=== PATIENT | female | born 1935 | race Caucasian/White ===

== ENCOUNTER → 2021-03-19 10:43 | Outpatient (CLI) | payer MEDICARE, SELFPAY | PROVIDERS: Visit Provider Obstetrics & Gynecology | DX: N77.1 Vaginitis, vulvitis and vulvovaginitis in diseases classified elsewhere (principal) ==

== ENCOUNTER 2023-01-02 16:06 | Inpatient (IN) | payer MEDICARE, SELFPAY ==
[2023-01-02 15:17] VITALS: BP 99/49; PULSE 92; RESP 18; TEMP 36.7; O2SAT 90
[2023-01-02 15:19] VITALS: O2SAT 94
[2023-01-02 15:21] VITALS: BMI 29.4
[2023-01-02 15:27] VITALS: BP 104/88; PULSE 81; RESP 16; TEMP 36.7; O2SAT 95
--- NOTE | 2023-01-02 16:12 | HP.PCM.HOS_ITS ---
HPI - General General Date of Admission: 01/02/23 HPI Narrative BARBY CHOWDARY, is a 87 F who presents to an outside hospital with a couple weeks of ongoing fatigue as well as a cough. She takes lisinopril and metoprolol she says that she was recently taken off metoprolol because she was having some periodic heart palpitations but every now and again if she feels her heart acting up she will take her metoprolol. She presented to an outside hospital today and she was found to be afebrile but have a leukocytosis of 135,000 with platelets at 49,000 and hemoglobin of 11, automated differential showed that it was about 83% neutrophils as well as a possible pneumonia on chest x-ray. Her BNP was also elevated at 2000 but she had a creatinine of 3.3 and we do not know what her baseline is. She denies any chest pain, lightheadedness, or significant shortness of breath. [facility] Medical History (Updated 01/02/23 @ 17:[address] Shiva Lorenzo MD) History of removal of pessary Hypertension Prolapse of bladder Home Medications metoprolol succinate 50 mg capsule sprinkle, ext. release 24 hr (Kapspargo Sprinkle) 50 mg PO DAILY 01/02/23 [History Last Taken Unknown] Allergy/AdvReac Type Severity Reaction Status Date / Time pineapple AdvReac Mild Nausea Verified 01/02/23 15:27 tomato AdvReac Mild Itching Verified 01/02/23 15:27 bees AdvReac Severe Anaphylaxis Uncoded 01/02/23 15:27 Family History (Updated 01/02/23 @ 16:[address] Shiva Lorenzo MD) Other CVA (cerebral vascular accident) Family History no significant family his Surgical History no surgical history no surgical history Social History Smoking Status: Never smoker ROS Constitutional Constitutional: Reports fatigue; Denies chills, fever(s) or malaise Eyes Eyes: Denies blurry vision ENT HEENT: Denies headache(s) or nasal discharge Cardiovascular Cardiovascular: Denies chest pain, dyspnea on exertion or syncope Respiratory/Chest Respiratory/Chest: Reports cough; Denies shortness of breath at rest or shortness of breath with exertion Gastrointestinal Gastrointestinal: Denies constipation, diarrhea, nausea or vomiting Genitourinary Genitourinary: Denies dysuria Neurologic Neurologic: Denies focal weakness, numbness or tremor(s) Psychiatric Psychiatric: Denies anxiety or depression Vital Signs Vital Signs Vital Signs: 01/02/23 15:17 01/02/23 15:19 01/02/23 15:27 Temperature 98.1 F 98.1 F Temperature Source Oral Oral Pulse Rate 92 81 Respiratory Rate 18 16 Blood Pressure 99/49 L 104/88 H Blood Pressure Mean 65 93 Blood Pressure Source Monitor Monitor Blood Pressure Position Semi-Fowlers Semi-Fowlers Blood Pressure Location Left Arm Left Arm Pulse Ox 90 94 95 Oxygen Delivery Method Room Air Nasal Cannula Nasal Cannula Oxygen Flow Rate (L/min) 2 2 Weight Weight: 145 lb 11.609 oz Body Mass Index (BMI) 29.4 Physical Exam Narrative General: Alert, Oriented x3, Cooperative, No apparent distress HEENT: Atraumatic, PERRLA, EOMI, Normocephalic Oral: Moist Mucosa Neck: Supple, No JVD Lungs: Diminished, Normal air movement, No rhonchi, slight wheeze, No rales Cardiovascular: Regular rate, Regular Rhythm, Normal S1, Normal S2, No murmurs Abdomen: Soft, Non Tender, Non-Distended, No Hepato-splenomegaly Extremities: No edema, Capillary Refill Less than 3 Seconds Skin: No rashes, No breakdown Musculoskeletal: No Tenderness to Palpation of Joints or Extremities Neurological: Cranial nerves II-XII grossly intact, Motor Exam 5/5 strength throughout, Sensory exam intact to light touch and pain Psych/Mental Status: Normal Affect, Appropriate Assessment & Plan Assessment/Plan (1) Leukocytosis: PLAN: Plan 1. Leukocytosis unknown etiology with thrombocytopenia/elevated creatinine ? Her white blood cell count at the outside hospital is 135,000 we will recheck a CBC today and will also add an LDH as well as iron studies and a B12 ? We will place her on some IV fluids, is unclear as to what her baseline creatinine is she likely has an MIKKI boat we will see what her creatinine counteracts to tomorrow and if it is significantly lower than 3.3 she came in with then she likely does have an MIKKI ? Once further lab work comes back may need to proceed with consulting hematology ? Outside hospital imaging modalities are being uploaded into our PACS, at this time she is afebrile ? We will obtain a UA ? At the outside hospital she also had an elevated BNP which can be elevated to a degree with creatinine of 3.3 ? She was COVID-negative 2. Hypertension ? She has been on both metoprolol and lisinopril ? She states that she was stopped on the metoprolol but she takes it periodically whenever she feels that she has palpitations ? We will hold both her metoprolol and her lisinopril as she has her likely renal failure and her blood pressure is little bit borderline ? Continue with IV fluids DVT: SCDs 75 minutes was spent on direct patient care, including documentation as well as chart review and collaboration with colleagues Charges/Coding Visit Charges Inpatient E&M: 23185 Init Hosp L3
[2023-01-02] MEDS: 0.9% Normal Saline (1000mL) 1,000 ML 75 ML IV (16:28)
[2023-01-02 18:05] LABS: Hematocrit 31.1 % (37-47); Mean Corp Hgb Conc 32.2 g/dL (32-36); Mean Corpuscular Hgb 32.5 pg (27.0-32.0); Mean Platelet Vol. 12.6 fl (6.2-12.0); POSITIVE COUNT YES; POSITIVE DIFFERENTIAL YES; POSITIVE MORPHOLOGY YES; RBC Distribution Width CV 15.8 % (11.6-14.6); RBC Distribution Width SD 55.3 fl (35.1-43.9); Red Blood Count 3.08 M/mm3 (4.2-5.4)
[2023-01-02 18:19] LABS: Differential Indicated MANUAL DIFF; Platelet Count 40 K/mm3 (150-450); White Blood Count 148.1 K/mm3 (4.4-11.0)
[2023-01-02 18:36] LABS: Vitamin B12 1105 pg/mL (211-911)
[2023-01-02 18:45] LABS: Ferritin 528 ng/mL (8-252); Iron 133 ug/dL (50-170); Iron Binding Capacity,Total 236 ug/dL (250-450); LDH 695 U/L (84-246); PERCENT IRON SATURATION 56.4 % (15.0-55.0)
[2023-01-02 18:50] LABS: Neutrophil-Band 5 % (0-5); Total Cells Counted 100 (MANUAL DIFF)
[2023-01-02 18:51] LABS: Red Cell Morphology NORM C+C NORMAL (NORM C&C)
[2023-01-02 18:52] LABS: Platelet Estimate MKD DEC (ADEQ)
[2023-01-02 19:35] LABS: Mucous, Urine 0 SEEN /hpf (<or=2+)
[2023-01-02 19:41] LABS: Color, Urine Yellow (Yellow); Glucose, Dipstick Normal (Normal); Ketone-Dipstick Negative (Negative); Leukocyte Esterase-Dipstick 500 /ul (Negative); Nitrite-Dipstick Positive (Negative); Occult Blood-Urine 150 /ul (Negative); Protein-Dipstick 100 mg/dl (Negative); Specific Gravity, Urine 1.015 (1.002-1.030); Urine Bilirubin Dipstick Negative (Negative); Urine Clarity Cloudy (Clear); Urine Urobilinogen Normal (Normal)
[2023-01-02 19:48] LABS: Red Blood Cells-Urine 5-10 SEEN /hpf (0-5)
[2023-01-02 19:49] LABS: Bacteria 1+ /hpf (None Seen); Squamous Epithelial Cells - UA 0-5 SEEN /hpf (5-10); White Blood Cells 25-50 SEEN /hpf (0-5)
[2023-01-02 22:59] VITALS: BP 118/52; PULSE 74; RESP 18; TEMP 36.7; O2SAT 94
[2023-01-02 23:00] VITALS: BP 118/52; PULSE 74; RESP 18; TEMP 36.7; O2SAT 94
[2023-01-03] VITALS (8 sets, daily range): BP systolic 101–121; BP diastolic 50–82; PULSE 65–79; RESP 16–18; TEMP 36.4–36.7; O2SAT 90–100
[2023-01-03] MEDS: Zolpidem Tartrate 5 MG Tablet PO ×2 (00:06→20:37)
[2023-01-03] MEDS: Ceftriaxone 1 GM/50 ML BAG IV ×2 (00:09→20:37)
[2023-01-03] MEDS: guaiFENesin 1,200 MG Tablet 1200 MG PO ×3 (00:18→20:38)
[2023-01-03] MEDS: 0.9% Normal Saline (1000mL) 1,000 ML 75 ML IV (04:56)
--- NOTE | 2023-01-03 08:01 | PCM.PN.HOSP ---
Reason for Visit Reason for Visit: Diagnoses Elevated white blood cell count, unspecified (01/02/23) Subjective Subjective Patient is an 87-year-old lady with past medical history significant for hypertension, uterine prolapse who was sent from [facility] with renal failure and significant leukocytosis Objective Data Objective Data Vital Signs: Vital Signs Temp Pulse Resp BP Pulse Ox O2 Del Method O2 Flow Rate 98.0 F 69 18 112/50 L 93 Room Air 2 01/03/23 03:01 01/03/23 03:01 01/03/23 03:01 01/03/23 03:01 01/03/23 03:01 01/03/23 03:01 01/03/23 00:52 Oxygen Flow Rate (L/min) 2 Oxygen Delivery Method Room Air Weight: 66.1 kg Body Mass Index (BMI) 29.4 Intake & Output: Intake and Output for Last 24 Hours 01/01/23 01/02/23 01/03/23 23:59 23:59 23:59 Intake Total 0 / 0 985 / 985 Output Total 0 / 0 Balance 0 / 0 985 / 985 Lab / Micro Data 01/03/23 08:04 01/03/23 08:04 Labs: Laboratory Results - last 24 hr 01/02/23 17:10: WBC 148.1 H*, RBC 3.08 L, Hgb 10.0 L, Hct 31.1 L, MCV 101.0 H, MCH 32.5 H, MCHC 32.2, RDW Std Deviation 55.3 H, RDW Coeff of Macy 15.8 H, Plt Count 40 L*, MPV 12.6 H, Neut % (Auto) Not Reportable, Absolute Neuts (auto) 34.1 H, Absolute Lymphs (auto) 38.51 H, Total Counted 100, Neutrophils % (Manual) 18 L, Band Neutrophils % 5, Lymphocytes % (Manual) 26, Monocytes % (Manual) 49 H, Eosinophils % (Manual) 2, Nucleated RBCs/100 WBC 2, Diff Path Review May foll, Platelet Estimate MKD DEC, RBC Morphology NORM C+C, Iron 133, TIBC 236 L, Iron Saturation 56.4 H, Ferritin 528 H, Lactate Dehydrogenase 695 H, Vitamin B12 1105 H 01/02/23 19:23: Urine Color Yellow, Urine Clarity Cloudy, Urine pH 6.0, Ur Specific [place] 1.015, Urine Protein 100 H, Urine Glucose (UA) Normal, Urine Ketones Negative, Urine Occult Blood 150 H, Urine Nitrite Positive H, Urine Bilirubin Negative, Urine Urobilinogen Normal, Ur Leukocyte Esterase 500 H, Urine RBC 5-10 SEEN, Urine WBC 25-50 SEEN, Ur Squamous Epith Cells 0-5 SEEN, Urine Bacteria 1+, Urine Mucus 0 SEEN Physical Exam Narrative GENERAL: cooperative HEENT: Atraumatic; normocephalic EYES; Anicteric, Normal Conjunctiva NECK; supple, normal thyroid, RESPIRATORY: Diminished to auscultation CARDIOVASCULAR: Regular S1 S2, GI: soft, normoactive bowel sounds, : No Renal angle tenderness; EXTREMITIES: No edema, no clubbing, MUSCULOSKELETAL: no muscle wasting NEURO: Awake; no lateralizing signs. SKIN: No Rash PSYCH; Flat affect Assessment & Plan Assessment/Plan (1) Leukocytosis: QUALIFIERS: Leukocytosis type: bandemia Qualified Code(s): D72.825 - Bandemia PLAN: Plan Patient is an 87-year-old lady with past medical history significant for hypertension, uterine prolapse who was sent from [facility] with renal failure and significant leukocytosis 1. Leukocytosis ? 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 Patient admitted to monitored bed consult placed to oncology Case discussed with Dr. Carlson. Case also discussed with patient. Patient is not interested in pursuing any aggressive treatment at this point 2. Thrombocytopenia ? Related to patient acute leukemia monitoring with daily CBC with differential 3. 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 Monitoring H&H with plans to transfuse if patient is deemed to be symptomatic or hemoglobin falls below 7 4. Acute renal failure ? Baseline creatinine unknown. Potential nephrotoxic medications including lisinopril held started on IV fluids. Also ordered phosphorus, magnesium and uric acid to rule out tumor lysis syndrome. Patient is on IV fluid with subsequent monitoring of electrolytes ordered. Also ordered renal ultrasound to rule out obstructive uropathy 5. Acute cystitis ? Started on ceftriaxone cultures sent we will follow-up on result 6. Essential hypertension ? Patient lisinopril held in view of impaired kidney function, on metoprolol resumed 7. History of uterine prolapse ? With previous treatment with pessaries 8. DVT prophylaxis ? Chemoprophylaxis contraindicated given patient low platelet count SCDs ordered Time spent in the patient's overall evaluation,decision-making process, review of diagnostic data, adjustment of management, discussion with other providers, nursing nursing and ancillary staff involved in patient's care documentation, 52 Minutes Advance planning; did discuss with the patient and family regarding advanced directives as well as CODE STATUS. Did explain the various scenarios involved ( FULL CODE, DNR CCA, DNR CCA with no intubation, and DNR CC and what each meant) patient elected to be DNR CCA no intubation. Order was placed. Time spent on discussion 18 minutes. Charges/Coding Visit Charges Inpatient E&M: 17661 Subs Hosp L3
[2023-01-03 08:41] LABS: Hematocrit 28.6 % (37-47); Hemoglobin 9.2 g/dL (12.0-15.0); Mean Corp Hgb Conc 32.2 g/dL (32-36); Mean Corpuscular Hgb 32.3 pg (27.0-32.0); Mean Corpuscular Volume 100.4 fL (81-99); Mean Platelet Vol. 12.9 fl (6.2-12.0); POSITIVE COUNT YES; POSITIVE DIFFERENTIAL YES; POSITIVE MORPHOLOGY YES; Platelet Count 35 K/mm3 (150-450); RBC Distribution Width CV 15.8 % (11.6-14.6); RBC Distribution Width SD 55.5 fl (35.1-43.9); Red Blood Count 2.85 M/mm3 (4.2-5.4)
[2023-01-03 08:52] LABS: Differential Indicated MANUAL DIFF; White Blood Count 127.8 K/mm3 (4.4-11.0)
[2023-01-03 09:14] LABS: Anion Gap 11 (5-15); BUN 48 mg/dL (7-18); BUN/Creat Ratio 13.6 RATIO (10-20); Calcium,Total 9.6 mg/dL (8.5-10.1); Chloride 108 mmol/L (98-107); Creatinine, Serum 3.53 mg/dL (0.55-1.02); EST Glomerular Filtration Rate 13 mL/min (>60); Est Glom Filt Rate - Afr Amer 16 mL/min (>60); Glucose 94 mg/dL (74-106); Potassium 3.4 mmol/L (3.5-5.1); Sodium Level 141 mmol/L (136-145)
[2023-01-03 09:38] LABS: Uric Acid 25.8 mg/dL (2.6-6.0)
[2023-01-03 09:38] LABS: Phosphorus 5.6 mg/dL (2.5-4.9)
--- NOTE | 2023-01-03 09:40 | CASEMGMT ---
ELISSA WOLFE Assessment: Face to Face with pt for initial transition planning/care coordination assessment. ELISSA WOLFE introduced self and role at [facility], pt voices understanding and consents to assessment. Pt is A&O x4 and answers all questions appropriately at this time. Pt. is sitting up in chair at bedside. She is hard of hearing. Care providers, pharmacy, and demographics verified/updated. Admitting Dx: Leukemia/MIKKI/Pneumonia PCP: Denies having one (Patient was provided a list of PCP providers including quality and resource use data and consistent with the patient?s preferred geographic region, medical needs, and insurance network. Specialists: Dr. Almaguer (Boiler Room Helper) Preferred Pharmacy: [facility] ([place]) Insurance: [employer] Prescription Benefit: No Living Will/HCPOA: NO and NO (Patient informed she can make an appointment here with [facility] to establish these documents. Pt. states she would be interested in receiving information about LW and HCPOA. ELISSA WOLFE informed SW of this) LNOK:Earl Werner (Grandson) Living Arrangements: Pt lives alone in an apartment with FFSU, and no steps to enter. She states she dresses herself, her grandson helps her to enter and exit the shower but she does shower herself, toilets herself. She states jasiel family does her laundry, cooking and cleaning (states cleaning has become more difficult recently). Transportation: Pt states her grandson, Earl, drives her (he lives a mile away from pt). DME: shower chairm cane, lift chair, FWW, BP cuff. Declines information on medical alert systems. HHC/SNF: Denies any previous HHC or SNF Pt states she feels she needs someone to check on her medically, as well as assistance with cooking and cleaning. Pt states no further concerns/needs. CM to follow. Advised pt to ask CM if any further question/concerns/needs arise, voices understanding. Pt Goal: Pt. states she is open to home with HHC, but is also open to hospice if that is what needs to happen. She states her goal is to be comfortable for the rest of my days and be able to talk with my family. Plan: TBD, HHC vs. Hospice
[2023-01-03 10:06] LABS: Myelocyte 6 % (0-0); Neutrophil-Band 6 % (0-5); Neutrophil-Segmented 21 % (47-70); Promyelocyte 2 % (0-0); Total Cells Counted 100 (MANUAL DIFF)
[2023-01-03 10:11] LABS: Lymphocyte 18 % (19-41); Monocyte 15 % (0-10); Nucleated Red Bld Cells,Manual 1 % (0-5)
[2023-01-03 10:18] LABS: Platelet Estimate MKD DEC (ADEQ); Red Cell Morphology NORM C+C NORMAL (NORM C&C)
[2023-01-03 10:31] LABS: Absolute Neutrophil Count 34.5 X10^3/uL (2.0-7.7)
[2023-01-03 10:32] LABS: Blast 32 % (0-0)
[2023-01-03 10:33] LABS: Pathologist Review May foll
--- NOTE | 2023-01-03 12:04 | US_ITS ---
INDICATION: renal failure EXAMINATION: Ultrasound US Kidney(s) complete (eg, kidneys and bladder) TECHNIQUE: Gonzales scale and color doppler images were obtained of the kidneys. COMPARISON: FINDINGS: RIGHT KIDNEY: 11.1 x 5.0 x 4.3 cm. Cortical thickness 1.6 cm.. There is no hydronephrosis. No focal lesion or perinephric collection is demonstrated. 0.5 x 0.6 x 0.4 cm mid pole nonobstructing calculus. LEFT KIDNEY: 9.8 x 4.0 x 4.2 cm. Cortical thickness 1.0 cm.. There is no hydronephrosis. No focal lesion or perinephric collection is demonstrated. 0.7 x 0.6 x 0.3 cm nonobstructing lower pole calculus. Bilaterally there is increased echotexture of the cortices of both kidneys consistent with medical renal disease. URINARY BLADDER: No acute abnormality. US/Kidney and Bladder IMPRESSION: Bilateral lower pole nonobstructing renal calculi detailed above. Increased echotexture of the renal cortices bilaterally consistent with medical renal disease. Electronically Signed: Linden Vizcaino MD at 14:00 EDT ,
--- NOTE | 2023-01-03 12:27 | ONC.CONSULT ---
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 Cook, there 50% blast. Recommend Flow cytometry. Discussed finding with Pt, she wants supportive care, does not want transfer a hospital capable of managing Acute Leukemia. Suggest supportive care, hospice care consult if she agrees. (2) Leukocytosis: Status: Acute Code(s): D72.829 - Elevated white blood cell count, unspecified Qualifiers: Leukocytosis type: bandemia Qualified Code(s): D72.825 - Bandemia Plan: To obtain Flow Cytometry. HPI Consult Data Date of Service:: 01/03/23 PCP / Referring Provider: No Primary Care Phys Attending: Dr. David Martin MD Chief Complaint Chief Complaint: Asked to see Pt with Leukocytosis. History of Present Illness History of Present Illness: 87-year-old woman transferred from [facility] hospital with acute renal failure. She was found to have leukocytosis with increased blast cells. She denies previous episode of leukocytosis, fever, night sweats, shortness of breath, headache or dizziness Advanced Directives Power of [employer]: No Living Will: Yes [facility] Medical History (Updated 01/03/23 @ 12:[address] Ronak Campbell MD) History of removal of pessary Hypertension Prolapse of bladder Home Medications metoprolol succinate 50 mg capsule sprinkle, ext. release 24 hr (Kapspargo Sprinkle) 50 mg PO DAILY 01/02/23 [History Last Taken Unknown] Allergy/AdvReac Type Severity Reaction Status Date / Time pineapple AdvReac Mild Nausea Verified 01/02/23 15:27 tomato AdvReac Mild Itching Verified 01/02/23 15:27 bees AdvReac Severe Anaphylaxis Uncoded 01/02/23 15:27 Family History (Updated 01/02/23 @ 16:[address] Shiva Lorenzo MD) Other CVA (cerebral vascular accident) Family History no significant family his Surgical History no surgical history Social History Smoking Status: Never smoker Physical Exam Narrative Elderly woman, hard of hearing. Const alert, oriented x3 and no apparent distress HEENT normocephalic Eyes conjunctivae normal and no scleral icterus Neck no lymphadenopathy Lymph Lymphatic: no lymphadenopathy noted Chest inspection of chest normal and inspection of breasts normal Resp normal respiratory effort and clear to auscultation bilaterally Cardio regular rate, regular rhythm, S1 normal heart sound, S2 normal heart sound and no murmurs GI normal to inspection, nondistended, normoactive bowel sounds Extremity normal to inspection and no clubbing, cyanosis or edema Skin Skin Narrative: bruises forearms. Neuro CN's II-XII intact bilaterally, moves all extremities and no focal motor deficits Psych mental status grossly normal Vital Signs Temperature 97.9 F 01/03/23 08:10 Temperature Source Temporal 01/03/23 08:10 Pulse Rate 71 01/03/23 08:10 Respiratory Rate 18 01/03/23 08:10 Respiratory Effort Normal, Non-Labored 01/03/23 08:00 Respiratory Depth Normal 01/03/23 08:00 Respiratory Pattern Normal 01/03/23 08:00 Blood Pressure 121/54 H 01/03/23 08:10 Blood Pressure Mean 76 01/03/23 08:10 Blood Pressure Source Monitor 01/03/23 08:10 Blood Pressure Position Semi-Fowlers 01/03/23 08:10 Blood Pressure Location Left Arm 01/03/23 08:10 Pulse Ox 93 01/03/23 08:12 Oxygen Delivery Method Room Air 01/03/23 08:12 Oxygen Flow Rate (L/min) 2 01/03/23 00:52 Laboratory Results - last 24 hr 01/02/23 17:10: WBC 148.1 H*, RBC 3.08 L, Hgb 10.0 L, Hct 31.1 L, MCV 101.0 H, MCH 32.5 H, MCHC 32.2, RDW Std Deviation 55.3 H, RDW Coeff of Macy 15.8 H, Plt Count 40 L*, MPV 12.6 H, Neut % (Auto) Not Reportable, Absolute Neuts (auto) 34.1 H, Absolute Lymphs (auto) 38.51 H, Total Counted 100, Neutrophils % (Manual) 18 L, Band Neutrophils % 5, Lymphocytes % (Manual) 26, Monocytes % (Manual) 49 H, Eosinophils % (Manual) 2, Nucleated RBCs/100 WBC 2, Diff Path Review July, Platelet Estimate MKD DEC, RBC Morphology NORM C+C, Iron 133, TIBC 236 L, Iron Saturation 56.4 H, Ferritin 528 H, Lactate Dehydrogenase 695 H, Vitamin B12 1105 H 01/02/23 19:23: Urine Color Yellow, Urine Clarity Cloudy, Urine pH 6.0, Ur Specific [place] 1.015, Urine Protein 100 H, Urine Glucose (UA) Normal, Urine Ketones Negative, Urine Occult Blood 150 H, Urine Nitrite Positive H, Urine Bilirubin Negative, Urine Urobilinogen Normal, Ur Leukocyte Esterase 500 H, Urine RBC 5-10 SEEN, Urine WBC 25-50 SEEN, Ur Squamous Epith Cells 0-5 SEEN, Urine Bacteria 1+, Urine Mucus 0 SEEN 01/03/23 08:04: WBC 127.8 H*, RBC 2.85 L, Hgb 9.2 L, Hct 28.6 L, MCV 100.4 H, MCH 32.3 H, MCHC 32.2, RDW Std Deviation 55.5 H, RDW Coeff of Macy 15.8 H, Plt Count 35 L*, MPV 12.9 H, Neut % (Auto) Not Reportable, Absolute Neuts (auto) 34.5 H, Absolute Lymphs (auto) 23.00 H, Total Counted 100, Neutrophils % (Manual) 21 L, Band Neutrophils % 6 H, Lymphocytes % (Manual) 18 L, Monocytes % (Manual) 15 H, Myelocytes % 6 H, Promyelocytes % 2 H, Blast Cells % 32 H*, Nucleated RBCs/100 WBC 1, Diff Path Review May avni, Platelet Estimate MKD DEC, RBC Morphology NORM C+C, Sodium 141, Potassium 3.4 L, Chloride 108 H, Carbon Dioxide 22.0, Anion Gap 11, BUN 48 H, Creatinine 3.53 H, Estim Creat Clear Calc 11.50, Est GFR (MDRD) Af Amer 16 L, Est GFR (MDRD) Non-Af 13 L, BUN/Creatinine Ratio 13.6, Glucose 94, Calcium 9.6, Phosphorus 5.6 H 01/03/23 09:05: Uric Acid 25.8 H Charges/Coding Visit Charges Office Visits / Consults: 70176 IP Consult L4
[2023-01-03] MEDS: 0.9% Saline Lock 10 ML Syringe IV ×2 (13:44→16:36)
[2023-01-03] MEDS: Allopurinol 300 MG Tablet PO ×2 (13:54→18:04)
[2023-01-03 14:19] LABS: Blast 53 % (0-0); Lymphocyte 17 % (19-41); Myelocyte 2 % (0-0); Neutrophil-Segmented 16 % (47-70)
[2023-01-03 14:20] LABS: Monocyte 7 % (0-10)
[2023-01-03 14:29] LABS: Absolute Neutrophil Count 31.1 X10^3/uL (2.0-7.7)
[2023-01-03 14:30] LABS: Absolute Lymphocyte Count 25.18 X10^3/uL (0.83-4.51)
--- NOTE | 2023-01-03 15:32 | CON.PCM.RE_ITS ---
Assessment & Plan Assessment/Plan (1) Acute kidney injury: PLAN: Plan There are 2 possibilities, first one of course tumor lysis syndrome, extreme hyperuricemia and crystallization of uric acid in the kidneys, second possibility would be hyperviscosity due to such high white cell count. The only indication for dialysis would be hyperuricemia at this point, as she is got no significant hyperkalemia, acidosis or hyperphosphatemia. Long discussion with the patient. She does not want any heroic measures, including dialysis. We will go ahead and aggressively hydrate with the use of Lasix to cause forced diuresis and lower uric acid that is way HPI Consult Data Date of Consult: 01/03/23 HPI Narrative Reason for Consultation: Acute kidney injury HPI Narrative: BARBY CHOWDARY, is a 87 F who presents With extreme leukocytosis. As she is a relatively healthy female with unknown underlying kidney function, who has been experiencing symptoms of anxiety, fatigue and nausea for couple weeks. She decided to get checked in and was found to have white count of 150,000, some blasts, as well as kidney failure. 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 She is not acidotic, her bicarb is 22, she is not hyperkalemic, and her phosp horus only mildly elevated. Nevertheless her uric acid is greatly elevated at 25. She does not look fluid overloaded, she is hemodynamically stable, she was started on allopurinol. Currently receiving saline hydration at 75 cc/h [facility] Medical History (Updated 01/03/23 @ 15:[address] Kori Tena MD) History of removal of pessary Hypertension Prolapse of bladder Home Medications metoprolol succinate 50 mg capsule sprinkle, ext. release 24 hr (Kapspargo Sprinkle) 50 mg PO DAILY 01/02/23 [History Last Taken Unknown] Allergy/AdvReac Type Severity Reaction Status Date / Time pineapple AdvReac Mild Nausea Verified 01/02/23 15:27 tomato AdvReac Mild Itching Verified 01/02/23 15:27 bees AdvReac Severe Anaphylaxis Uncoded 01/02/23 15:27 Family History Other CVA (cerebral vascular accident) Family History no significant family his Surgical History no surgical history Social History Smoking Status: Never smoker Marcus'kenneth Information Additional Findings: Patient states that her grandmother had kidney failure ROS Gastrointestinal Gastrointestinal: Reports nausea Genitourinary Genitourinary: Denies change in urinary stream, difficulty urinating, dribbling, dysuria, flank pain, hematuria, nocturia, oliguria, post void dribbling, urinary frequency, urinary hesitancy, urinary incontinence or urinary urgency Musculoskeletal Musculoskeletal: Denies abnormal gait, arthralgias, joint stiffness, joint swelling, muscle cramps or myalgias Integumentary Integumentary: Denies dry skin, erythema, jaundice, lesions, pruritus, rash or skin ulcer Neurologic Neurologic: Denies abnormal gait, burning sensations, confusion, focal weakness, frequent falls, headache(s), numbness, restless legs, seizures, syncope, tremor(s) or weakness Psychiatric Psychiatric: Reports anxiety Endocrine Endocrinology: Denies cold intolerance, fatigue, heat intolerance, polydipsia or polyuria Hematologic/Lymphatic Hematologic/Lymphatic: Reports easy bruising Physical Exam Const Orientation / Consciousness: oriented to person, oriented to place and oriented to time HEENT normocephalic Head and Scalp: atraumatic External Ear: external ears normal Eyes PERRL Neck no lymphadenopathy Resp no use of accessory muscles and clear to auscultation bilaterally Cardio regular rate GI non-tender and non-distended Auscultation: normoactive bowel sounds Palpation: soft no CVA tenderness Back/Spine normal ROM Skin no rashes or lesions noted Neuro CN's II-XII intact bilaterally Sensorium / Orientation: awake and alert Psych cooperative Medical Records Data Attestation: I reviewed the patient's medical records Lab / Micro Data Attestation: I reviewed the patient's lab results. 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, Diff Path Review July foll, Platelet Estimate MKD DEC, RBC Morphology NORM C+C, Iron 133, TIBC 236 L, Iron Saturation 56.4 H, Ferritin 528 H, Lactate Dehydrogenase 695 H, Vitamin B12 1105 H 01/02/23 19:23: Urine Color Yellow, Urine Clarity Cloudy, Urine pH 6.0, Ur Specific [place] 1.015, Urine Protein 100 H, Urine Glucose (UA) Normal, Urine Ketones Negative, Urine Occult Blood 150 H, Urine Nitrite Positive H, Urine Bilirubin Negative, Urine Urobilinogen Normal, Ur Leukocyte Esterase 500 H, Urine RBC 5-10 SEEN, Urine WBC 25-50 SEEN, Ur Squamous Epith Cells 0-5 SEEN, Urine Bacteria 1+, Urine Mucus 0 SEEN 01/03/23 08:04: WBC 127.8 H*, RBC 2.85 L, Hgb 9.2 L, Hct 28.6 L, MCV 100.4 H, MCH 32.3 H, MCHC 32.2, RDW Std Deviation 55.5 H, RDW Coeff of Macy 15.8 H, Plt Count 35 L*, MPV 12.9 H, Neut % (Auto) Not Reportable, Absolute Neuts (auto) 34.5 H, Absolute Lymphs (auto) 23.00 H, Total Counted 100, Neutrophils % (Manual) 21 L, Band Neutrophils % 6 H, Lymphocytes % (Manual) 18 L, Monocytes % (Manual) 15 H, Myelocytes % 6 H, Promyelocytes % 2 H, Blast Cells % 32 H*, Nucl eated RBCs/100 WBC 1, Diff Path Review July avni, Platelet Estimate MKD DEC, RBC Morphology NORM C+C, Sodium 141, Potassium 3.4 L, Chloride 108 H, Carbon Dioxide 22.0, Anion Gap 11, BUN 48 H, Creatinine 3.53 H, Estim Creat Clear Calc 11.50, Est GFR (MDRD) Af Amer 16 L, Est GFR (MDRD) Non-Af 13 L, BUN/Creatinine Ratio 13.6, Glucose 94, Calcium 9.6, Phosphorus 5.6 H 01/03/23 09:05: Uric Acid 25.8 H Radiology Impression Renal Ultrasound 01/03/23 12:04 IMPRESSION: Bilateral lower pole nonobstructing renal calculi detailed above. Increased echotexture of the renal cortices bilaterally consistent with medical renal disease. Electronically Signed: Linden Vizcaino MD at 14:00 EDT ,
[2023-01-03] MEDS: 0.9% Normal Saline (1000mL) 1,000 ML 150 ML IV ×2 (16:31→23:17)
[2023-01-03] MEDS: Furosemide 20 MG/2 ML VIAL IV ×2 (16:32→20:37)
--- NOTE | 2023-01-03 16:52 | CASEMGMT ---
Social Work SW met with patient and introduced self and role as [facility] SW. Patient lying on hospital bed and agreeable to speak with SW. SW engaged patient in conversation to complete SDoH. Patient reports living alone in a home she rents for the past four years. Patient explained she lives within a mile of two daughters and patient's grandson. Patient goes to the [employer] in [place] every three weeks for food items and is enrolled in utility program with [employer]. Patient's family assists patient with transportation needs and denied any additional resources. SW provided and reviewed WHIRE list; patient receptive. SW then engaged patient in conversation regarding ADs. Patient reports being interested in more information to review with her grandson to ensure he is comfortable being patient's agent. SW provided a copy of LW and HCPOA documents and informed patient of options to complete documents from the community or contacting [facility] SW for assistance to complete. Patient voiced understanding. Patient then discussed recent medical diagnosis and explained she wants to return home with close follow up with a new PCP to assist the patient with options. Patient explained patient's daughter is scheduling an appointment for the patient to become established with a PCP. Patient further explained although she is open to Hospice services, but declined a referral at this time. Patient plans to become established with PCP then explore services options with PCP and family. Patient declined any further SW needs at this time. Brenda CASE, JULIO CÉSAR
[2023-01-03] MEDS: SEVELAMER CARBONATE 800 MG TABLET PO (18:04)
[2023-01-04] VITALS (9 sets, daily range): BP systolic 114–133; BP diastolic 47–97; PULSE 71–77; RESP 16–18; TEMP 36.4–36.7; O2SAT 94–98
[2023-01-04] MEDS: 0.9% Normal Saline (1000mL) 1,000 ML 150 ML IV ×3 (05:00→23:46)
[2023-01-04] MEDS: Furosemide 20 MG/2 ML VIAL IV ×3 (05:01→21:02)
[2023-01-04 06:03] LABS: Hematocrit 28.4 % (37-47); Hemoglobin 9.2 g/dL (12.0-15.0); Mean Corp Hgb Conc 32.4 g/dL (32-36); Mean Corpuscular Hgb 32.9 pg (27.0-32.0); Mean Corpuscular Volume 101.4 fL (81-99); POSITIVE COUNT YES; POSITIVE DIFFERENTIAL YES; POSITIVE MORPHOLOGY YES; Platelet Count 35 K/mm3 (150-450); RBC Distribution Width CV 16.1 % (11.6-14.6); RBC Distribution Width SD 57.2 fl (35.1-43.9); White Blood Count 122.9 K/mm3 (4.4-11.0)
[2023-01-04 06:10] LABS: Differential Indicated MANUAL DIFF
[2023-01-04 07:03] LABS: AST(SGOT) 22 U/L (15-37); Alanine Aminotransfer ALT/SGPT 26 U/L (13-56); Albumin, Serum 2.9 g/dL (3.2-5.0); Alkaline Phosphatase 41 U/L (45-117); Anion Gap 10 (5-15); BUN 44 mg/dL (7-18); BUN/Creat Ratio 14.2 RATIO (10-20); Bilirubin, Direct 0.14 mg/dL (0.00-0.30); Calcium,Total 8.6 mg/dL (8.5-10.1); Chloride 113 mmol/L (98-107); Creatinine, Serum 3.09 mg/dL (0.55-1.02); EST Glomerular Filtration Rate 15 mL/min (>60); Est Glom Filt Rate - Afr Amer 18 mL/min (>60); Estimated Creatinine Clearance 13.13 ml/min; Globulin 3.4 g/dL (2.2-4.2); Glucose 96 mg/dL (74-106); Magnesium 2.1 mg/dL (1.6-2.6); Phosphorus 4.5 mg/dL (2.5-4.9); Potassium 3.1 mmol/L (3.5-5.1); Protein, Total 6.3 g/dL (6.4-8.2); Sodium Level 144 mmol/L (136-145)
[2023-01-04] MEDS: SEVELAMER CARBONATE 800 MG TABLET PO (08:11)
[2023-01-04] MEDS: guaiFENesin 1,200 MG Tablet 1200 MG PO ×2 (08:11→21:02)
[2023-01-04] MEDS: Allopurinol 300 MG Tablet PO ×2 (08:11→16:05)
--- NOTE | 2023-01-04 08:19 | PN.HOSP_ITS ---
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 Diagnostic data reviewed single for hypokale theresa of 3.1, creatinine of 3.09. Patient was seen in consultation by both nephrology as well as heme-onc notes and recommendations reviewed Objective Data Objective Data Vital Signs: Vital Signs Temp Pulse Resp BP Pulse Ox O2 Del Method O2 Flow Rate 97.8 F 71 16 125/47 H 96 Room Air 2 01/04/23 08:05 01/04/23 08:05 01/04/23 08:05 01/04/23 08:05 01/04/23 08:05 01/04/23 08:05 01/03/23 00:52 Oxygen Flow Rate (L/min) 2 Oxygen Delivery Method Room Air Weight: 66.1 kg Body Mass Index (BMI) 29.4 Intake & Output: Intake and Output for Last 24 Hours 01/02/23 01/03/23 01/04/23 23:59 23:59 23:59 Intake Total 0 / 0 3023.75 / 3023.75 857.5 / 857.5 Output Total 0 / 0 2 / 2 Balance 0 / 0 3021.75 / 3021.75 857.5 / 857.5 Lab / Micro Data 01/04/23 05:29 01/04/23 05:29 Labs: Laboratory Results - last 24 hr 01/02/23 17:10: Absolute Neuts (auto) 31.1 H, Absolute Lymphs (auto) 25.18 H, Neutrophils % (Manual) 16 L, Lymphocytes % (Manual) 17 L, Monocytes % (Manual) 7, Eosinophils % (Manual) Not Reportable, Myelocytes % 2 H, Blast Cells % 53 H*, Nucleated RBCs/100 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, Diff Path Review July01/03/23 08:04: WBC 127.8 H*, RBC 2.85 L, Hgb 9.2 L, Hct 28.6 L, MCV 100.4 H, MCH 32.3 H, MCHC 32.2, RDW Std Deviation 55.5 H, RDW Coeff of Mayc 15.8 H, Plt Count 35 L*, MPV 12.9 H, Neut % (Auto) Not Reportable, Absolute Neuts (auto) 34.5 H, Absolute Lymphs (auto) 23.00 H, Total Counted 100, Neutrophils % (Manual) 21 L, Band Neutrophils % 6 H, Lymphocytes % (Manual) 18 L, Monocytes % (Manual) 15 H, Myelocytes % 6 H, Promyelocytes % 2 H, Blast Cells % 32 H*, Nucleated RBCs/100 WBC 1, Diff Path Review July foll, Platelet Estimate MKD DEC, RBC Morphology NORM C+C, Sodium 141, Potassium 3.4 L, Chloride 108 H, Carbon Dioxide 22.0, Anion Gap 11, BUN 48 H, Creatinine 3.53 H, Estim Creat Clear Calc 11.50, Est GFR (MDRD) Af Amer 16 L, Est GFR (MDRD) Non-Af 13 L, BUN/Creatinine Ratio 13.6, Glucose 94, Calcium 9.6, Phosphorus 5.6 H 01/03/23 09:05: Uric Acid 25.8 H 01/04/23 05:29: WBC 122.9 H*, RBC 2.80 L, Hgb 9.2 L, Hct 28.4 L, MCV 101.4 H, MCH 32.9 H, MCHC 32.4, RDW Std Deviation 57.2 H, RDW Coeff of Macy 16.1 H, Plt Count 35 L*, Neut % (Auto) Not Reportable, Sodium 144, Potassium 3.1 L, Chloride 113 H, Carbon Dioxide 21.0, Anion Gap 10, BUN 44 H, Creatinine 3.09 H, Estim Creat Clear Calc 13.13, Est GFR (MDRD) Af Amer 18 L, Est GFR (MDRD) Non-Af 15 L, BUN/Creatinine Ratio 14.2, Glucose 96, Calcium 8.6, Phosphorus 4.5, Magnesium 2.1, Total Bilirubin 0.30, Direct Bilirubin 0.14, AST 22, ALT 26, Alkaline Phosphatase 41 L, Total Protein 6.3 L, Albumin 2.9 L, Globulin 3.4 Micro: Microbiology 01/02/23 19:23 Urine, Clean Catch Urine Culture - Final Mixed Gram Pos & Gram Neg Org Radiography Diagnostic Testing: Radiology Impression Renal Ultrasound 01/03/23 12:04 IMPRESSION: Bilateral lower pole nonobstructing renal calculi detailed above. Increased echotexture of the renal cortices bilaterally consistent with medical renal disease. Electronically Signed: Linden Vizcaino MD at 14:00 EDT , Physical Exam Narrative GENERAL: cooperative HEENT: Atraumatic; normocephalic EYES; Anicteric, Normal Conjunctiva NECK; supple, normal thyroid, RESPIRATORY: Diminished to auscultation CARDIOVASCULAR: Regular S1 S2, GI: soft, normoactive bowel sounds, : No Renal angle tenderness; EXTREMITIES: No edema, no clubbing, MUSCULOSKELETAL: no muscle wasting NEURO: Awake; no lateralizing signs. SKIN: No Rash PSYCH; Flat affect Assessment & Plan Assessment/Plan (1) Leukocytosis: QUALIFIERS: Leukocytosis type: bandemia Qualified Code(s): D72.825 - Bandemia PLAN: Plan Patient is an 87-year-old lady with past medical history significant for hypertension, uterine prolapse who was sent from [facility] with renal failure and significant leukocytosis 1. Leukocytosis ? 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 Patient admitted to monitored bed consult placed to oncology Case discussed with Dr. Carlson. Case also discussed with patient. Patient is not interested in pursuing any aggressive treatment at this point ? 01/04/2023 plan is for patient to undergo flow cytometry studies on 01/05/2023 2. Thrombocytopenia ? Related to patient acute leukemia monitoring with daily CBC with differential ? 01/04/2023; thrombocytopenia persist 3. 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 Monitoring H&H with plans to transfuse if patient is deemed to be symptomatic or hemoglobin falls below 7 4. Acute renal failure ? Baseline creatinine unknown. Potential nephrotoxic medications including lisinopril held started on IV fluids. Also ordered phosphorus, magnesium and uric acid to rule out tumor lysis syndrome. Patient is on IV fluid with subsequent monitoring of electrolytes ordered. Also ordered renal ultrasound to rule out obstructive uropathy ? 01/04/2023 patient was seen in consultation by nephrology notes, recommendations and orders reviewed. 5. Acute cystitis (ruled out) ? 01/04/2020 started on ceftriaxone cultures sent we will follow-up on result ? 01/04/2023 urine cultures mixed gram-positive and gram-negative organism possibly contaminant. Antibiotics discontinued 6. Essential hypertension ? Patient lisinopril held in view of impaired kidney function, on metoprolol resumed 7. History of uterine prolapse ? With previous treatment with pessaries 8. DVT prophylaxis ? Chemoprophylaxis contraindicated given patient low platelet count SCDs ordered 9. Hyperphosphatemia ? Patient was started on phosphate binders with subsequent monitoring of phosphorus levels ordered 10. Hypokalemia ? Corrected per protocol repeat labs ordered for a.m. Time spent in the patient's overall evaluation,decision-making process, review of diagnostic data, adjustment of management, discussion with other providers, nursing nursing and ancillary staff involved in patient's care documentation, 50 Minutes Charges/Coding Visit Charges Inpatient E&M: 68871 [facility] L3
[2023-01-04 12:12] LABS: Basophil 1 % (0-1); Blast 48 % (0-0); Lymphocyte 16 % (19-41); Metamyelocyte 2 % (0-1); Monocyte 1 % (0-10); Myelocyte 6 % (0-0); Neutrophil-Band 11 % (0-5); Neutrophil-Segmented 12 % (47-70); Nucleated Red Bld Cells,Manual 2 % (0-5); Promyelocyte 3 % (0-0); Total Cells Counted 100 (MANUAL DIFF)
[2023-01-04 12:13] LABS: Platelet Estimate MKD DEC (ADEQ); Red Cell Morphology NORM C+C NORMAL (NORM C&C)
[2023-01-04 12:18] LABS: Absolute Lymphocyte Count 19.66 X10^3/uL (0.83-4.51); Absolute Neutrophil Count 28.3 X10^3/uL (2.0-7.7)
[2023-01-04] MEDS: Potassium Chloride Oral Tablet 20 MEQ 40 MEQ PO ×2 (12:26→15:14)
[2023-01-04] MEDS: Potassium Chloride 10mEq/100mL 10 MEQ/100 ML IV.SOLN. 100 MEQ IV BOLUS (12:29)
[2023-01-04] MEDS: BENZOCAINE/MENTHOL 1 LOZENGE MUCOUS MEM (13:35)
[2023-01-04] MEDS: Ensure Plus High Protein 120 ML LIQUID PO (16:04)
[2023-01-04] MEDS: Zolpidem Tartrate 5 MG Tablet PO (21:02)
[2023-01-04] MEDS: Ceftriaxone 1 GM/50 ML BAG IV (21:02)
[2023-01-05] VITALS: BP 121/97; PULSE 77; RESP 15; TEMP 36.7; O2SAT 97
[2023-01-05 03:00] VITALS: BP 113/55; PULSE 63; RESP 16; TEMP 36.6; O2SAT 93
[2023-01-05] MEDS: 0.9% Normal Saline (1000mL) 1,000 ML 150 ML IV (04:59)
[2023-01-05] MEDS: Furosemide 20 MG/2 ML VIAL IV (05:00)
[2023-01-05 06:00] VITALS: BP 113/55; PULSE 63; RESP 16; TEMP 36.6; O2SAT 93
[2023-01-05 07:30] VITALS: O2SAT 91
[2023-01-05 07:43] LABS: Hematocrit 30.4 % (37-47); Hemoglobin 9.4 g/dL (12.0-15.0); Mean Corp Hgb Conc 30.9 g/dL (32-36); Mean Corpuscular Hgb 31.8 pg (27.0-32.0); Mean Corpuscular Volume 102.7 fL (81-99); POSITIVE COUNT YES; POSITIVE DIFFERENTIAL YES; POSITIVE MORPHOLOGY YES; RBC Distribution Width CV 16.7 % (11.6-14.6); RBC Distribution Width SD 58.4 fl (35.1-43.9); Red Blood Count 2.96 M/mm3 (4.2-5.4)
[2023-01-05 07:45] LABS: Differential Indicated MANUAL DIFF; Platelet Count 35 K/mm3 (150-450); White Blood Count 121.4 K/mm3 (4.4-11.0)
[2023-01-05 08:09] LABS: Anion Gap 6 (5-15); BUN 36 mg/dL (7-18); BUN/Creat Ratio 14.7 RATIO (10-20); Calcium,Total 8.6 mg/dL (8.5-10.1); Chloride 116 mmol/L (98-107); Creatinine, Serum 2.45 mg/dL (0.55-1.02); EST Glomerular Filtration Rate 20 mL/min (>60); Est Glom Filt Rate - Afr Amer 24 mL/min (>60); Estimated Creatinine Clearance 16.56 ml/min; Glucose 101 mg/dL (74-106); Potassium 3.5 mmol/L (3.5-5.1); Sodium Level 143 mmol/L (136-145)
[2023-01-05 08:14] LABS: Phosphorus 3.5 mg/dL (2.5-4.9)
[2023-01-05] MEDS: Allopurinol 300 MG Tablet PO (08:29)
[2023-01-05] MEDS: guaiFENesin 1,200 MG Tablet 1200 MG PO (08:29)
[2023-01-05] MEDS: Ensure Plus High Protein 120 ML LIQUID PO (08:29)
[2023-01-05 08:33] VITALS: BP 140/70; PULSE 85; RESP 16; TEMP 36.6; O2SAT 95
[2023-01-05 08:54] LABS: Blast 30 % (0-0); Lymphocyte 23 % (19-41); Metamyelocyte 1 % (0-1); Monocyte 30 % (0-10); Neutrophil-Band 2 % (0-5); Neutrophil-Segmented 14 % (47-70); Platelet Estimate MKD DEC (ADEQ); Red Cell Morphology NORM C+C NORMAL (NORM C&C); Total Cells Counted 100 (MANUAL DIFF)
[2023-01-05 08:55] LABS: Absolute Neutrophil Count 19.4 X10^3/uL (2.0-7.7)
[2023-01-05 10:20] VITALS: BP 115/82; PULSE 86; RESP 16; TEMP 36.6
[2023-01-05 10:31] LABS: Pathologist Review Reviewed
--- NOTE | 2023-01-05 11:08 | CASEMGMT ---
Social Work SW on Thursday spoke w/pt about LW/POA and gave her blank documents, let her know SW here can assist if she would like or she can complete as an outpt. RAIZA Escobedo
--- NOTE | 2023-01-05 11:11 | PCM.PN.REN ---
Subjective Subjective Resting in bed. No overnight events. Denies any complaints today, hopeful to go home today. Objective Data Objective Data Vital Signs: Vital Signs Temp Pulse Resp BP Pulse Ox O2 Del Method O2 Flow Rate 98 F 86 16 115/82 H 95 Room Air 2 01/05/23 10:20 01/05/23 10:20 01/05/23 10:20 01/05/23 10:20 01/05/23 08:33 01/05/23 10:20 01/03/23 00:52 Oxygen Flow Rate (L/min) 2 Oxygen Delivery Method Room Air Weight: 66.1 kg Body Mass Index (BMI) 29.4 Intake & Output: Intake and Output for Last 24 Hours 01/03/23 01/04/23 01/05/23 23:59 23:59 23:59 Intake Total 3023.75 / 3023.75 3247.5 / 3247.5 782.5 / 782.5 Output Total 2 / 4 / 4 Balance 3021.75 / 3021.75 3247.5 / 3243.5 778.5 / 778.5 Lab / Micro Data 01/05/23 07:27 01/05/23 07:27 Labs: Laboratory Results - last 24 hr 01/02/23 17:10: Diff Path Review Reviewed 01/04/23 05:29: Absolute Neuts (auto) 28.3 H, Absolute Lymphs (auto) 19.66 H, Total Counted 100, Neutrophils % (Manual) 12 L, Band Neutrophils % 11 H, Lymphocytes % (Manual) 16 L, Monocytes % (Manual) 1, Basophils % (Manual) 1, Metamyelocytes % 2 H, Myelocytes % 6 H, Promyelocytes % 3 H, Blast Cells % 48 H*, Nucleated RBCs/100 WBC 2, Diff Path Review May foll, Platelet Estimate MKD DEC, RBC Morphology NORM C+C 01/05/23 07:27: WBC 121.4 H*, RBC 2.96 L, Hgb 9.4 L, Hct 30.4 L, MCV 102.7 H, MCH 31.8, MCHC 30.9 L, RDW Std Deviation 58.4 H, RDW Coeff of Macy 16.7 H, Plt Count 35 L*, Neut % (Auto) Not Reportable, Absolute Neuts (auto) 19.4 H, Absolute Lymphs (auto) 27.90 H, Total Counted 100, Neutrophils % (Manual) 14 L, Band Neutrophils % 2, Lymphocytes % (Manual) 23, Monocytes % (Manual) 30 H, Metamyelocytes % 1, Blast Cells % 30 H*, Diff Path Review May foll, Platelet Estimate MKD DEC, RBC Morphology NORM C+C, Sodium 143, Potassium 3.5, Chloride 116 H, Carbon Dioxide 21.0, Anion Gap 6, BUN 36 H, Creatinine 2.45 H, Estim Creat Clear Calc 16.56, Est GFR (MDRD) Af Amer 24 L, Est GFR (MDRD) Non-Af 20 L, BUN/Creatinine Ratio 14.7, Glucose 101, Calcium 8.6, Phosphorus 3.5 Micro: Microbiology 01/02/23 19:23 Urine, Clean Catch Urine Culture - Final Mixed Gram Pos & Gram Neg Org Physical Exam Narrative Alert and oriented x3, no apparent distress S1, S2, RRR Lung sounds clear anteriorly and posteriorly. No wheezes rhonchi or rales Abdomen soft, nontender No edema Assessment & Plan Assessment/Plan (1) Acute kidney injury: PLAN: Plan MIKKI in setting of hyperuricemia; uric acid 25.8 on admission. Potassium and phosphorus normal. Calcium normal. Serum creatinine was 3.53 on admission and today has improved to 2.54 mg/dL. 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 She is tolerating IV hydration with the use of Lasix to cause forced diuresis and lower uric acid. Oncology consulted, note reviewed discussed with Dr. Martin, patient is being discharged home today. Patient does not want to pursue aggressive treatment or heroic measures.
--- NOTE | 2023-01-05 11:34 | DS.PCM_ITS ---
Providers Date of Admission: 01/02/23 Primary Care Physician: Saumya Primary Care Phys Consultations 01/03/23 10:28 Consult: Oncology/Hematology Routine Consulting Provider: Ronak Campbell Reason for Consult: Suspected leukemia EMERGENT Consult: Yes MD Notified: Yes Date Notified: 01/03/23 Time Notified: 09:28 Method of Notification: Verbal 01/03/23 13:12 Consult: Nephrology Routine Consulting Provider: Kori Tena Reason for Consult: MIKKI EMERGENT Consult: No Notified: Yes Date Notified: 01/03/23 Time Notified: 13:12 Method of Notification: Text Reason For Visit: LEUKEMIA/ACUTE KIDNEY INJURY/PNEUMONIA Diagnosis Discharge Diagnosis (1) Acute kidney injury: Status: Acute Code(s): N17.9 - Acute kidney failure, unspecified Plan Patient is an 87-year-old lady with past medical history significant for hypertension, uterine prolapse who was sent from [facility] in hospital with renal failure and significant leukocytosis 1. Leukocytosis ? 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 Patient admitted to monitored bed consult placed to oncology Case discussed with Dr. Carlson. Case also discussed with patient. Patient is not interested in pursuing any aggressive treatment at this point ? 01/04/2023 plan is for patient to undergo flow cytometry studies on 01/05/2023 ? 01/05/2023 patient was discharged with plans for patient to follow-up with oncology as outpatient 2. Thrombocytopenia ? Related to patient acute leukemia monitoring with daily CBC with differential ? 01/04/2023; thrombocytopenia persist 3. 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 Monitoring H&H with plans to transfuse if patient is deemed to be symptomatic or hemoglobin falls below 7 4. Acute renal failure ? Baseline creatinine unknown. Potential nephrotoxic medications including lisinopril held started on IV fluids. Also ordered phosphorus, magnesium and uric acid to rule out tumor lysis syndrome. Patient is on IV fluid with subseq uent monitoring of electrolytes ordered. Also ordered renal ultrasound to rule out obstructive uropathy ? 01/04/2023 patient was seen in consultation by nephrology notes, recommendations and orders reviewed. 5. Acute cystitis (ruled out) ? 01/04/2020 started on ceftriaxone cultures sent we will follow-up on result ? 01/04/2023 urine cultures mixed gram-positive and gram-negative organism possibly contaminant. Antibiotics discontinued 6. Essential hypertension ? Patient lisinopril held in view of impaired kidney function, on metoprolol resumed 7. History of uterine prolapse ? With previous treatment with pessaries 8. DVT prophylaxis ? Chemoprophylaxis contraindicated given patient low platelet count SCDs ordered 9. Hyperphosphatemia ? Patient was started on phosphate binders with subsequent monitoring of phosphorus levels ordered 10. Hypokalemia ? Corrected per protocol repeat labs ordered for a.m. Medications at Discharge Home Medications allopurinol 300 mg tablet 300 mg PO BIDCM #60 tabs 01/05/23 Hospital Course Summary of Care Provided Minutes Spent on Discharge: 35 Physical Exam Narrative GENERAL: cooperative HEENT: Atraumatic; normocephalic EYES; Anicteric, Normal Conjunctiva NECK; supple, normal thyroid, RESPIRATORY: Diminished to auscultation CARDIOVASCULAR: Regular S1 S2, GI: soft, normoactive bowel sounds, : No Renal angle tenderness; EXTREMITIES: No edema, no clubbing, MUSCULOSKELETAL: no muscle wasting NEURO: Awake; no lateralizing signs. SKIN: No Rash PSYCH; Flat affect Weight / BMI Weight Weight: 66.1 kg Body Mass Index (BMI) 29.4 ABG / Lab / Microbiology Data 01/05/23 07:27 01/05/23 07:27 Laboratory: Laboratory Results - last 24 hr 01/02/23 17:10: Diff Path Review Reviewed 01/04/23 05:29: Absolute Neuts (auto) 28.3 H, Absolute Lymphs (auto) 19.66 H, Total Counted 100, Neutrophils % (Manual) 12 L, Band Neutrophils % 11 H, Lymphocytes % (Manual) 16 L, Monocytes % (Manual) 1, Basophils % (Manual) 1, Metamyelocytes % 2 H, Myelocytes % 6 H, Promyelocytes % 3 H, Blast Cells % 48 H* , Nucleated RBCs/100 WBC 2, Diff Path Review May foll, Platelet Estimate MKD DEC, RBC Morphology NORM C+C 01/05/23 07:27: WBC 121.4 H*, RBC 2.96 L, Hgb 9.4 L, Hct 30.4 L, MCV 102.7 H, MCH 31.8, MCHC 30.9 L, RDW Std Deviation 58.4 H, RDW Coeff of Macy 16.7 H, Plt Count 35 L*, Neut % (Auto) Not Reportable, Absolute Neuts (auto) 19.4 H, Absolute Lymphs (auto) 27.90 H, Total Counted 100, Neutrophils % (Manual) 14 L, Band Neutrophils % 2, Lymphocytes % (Manual) 23, Monocytes % (Manual) 30 H, Metamyelocytes % 1, Blast Cells % 30 H*, Diff Path Review May foll, Platelet Estimate MKD DEC, RBC Morphology NORM C+C, Sodium 143, Potassium 3.5, Chloride 116 H, Carbon Dioxide 21.0, Anion Gap 6, BUN 36 H, Creatinine 2.45 H, Estim Creat Clear Calc 16.56, Est GFR (MDRD) Af Amer 24 L, Est GFR (MDRD) Non-Af 20 L, BUN/Creatinine Ratio 14.7, Glucose 101, Calcium 8.6, Phosphorus 3.5 Microbiology: Microbiology 01/02/23 19:23 Urine, Clean Catch Urine Culture - Final Mixed Gram Pos & Gram Neg Org D/C Instructions Discharge Diet: No restrictions Discharge Activity: Return to Normal Activity Call your doctor if you observe: Fever of 101 or Higher, Shortness of breath, Fainting spells and Chest pain Meaningful Use Info Meaningful Use Diagnoses (Choose all that apply): None applicable Discharge Plan Admission Admit Date/Time: 01/02/23 16:06 Attending Provider: David Martin Primary Care Provider: Care Physician,No Primary Consulting Providers: Hiren Maher; Ronak Campbell; Kori Tena Discharge Orders/Prescriptions Prescriptions: New allopurinol 300 mg Tablet 300 mg PO BIDCM Qty: 60 0RF Discontinued Kapspargo Sprinkle 50 mg capsule,sprinkle,ER 24hr 50 mg PO DAILY Referrals / Follow Up: Ronak Campbell MD [Med Staff - Active Staff] - Within 1 Week Care Physician,No Primary [Primary Care Provider] - In 1 Week Disposition Disposition (needs filled in before D/C Order can be placed): Home, Self Care Charges/Coding Visit Charges Inpatient E&M: 24608 Disch Hosp >30min
--- NOTE | 2023-01-05 11:49 | CASEMGMT ---
Discharge Planning A list of?HH providers including quality and resource use data and consistent with the patient's preferred geographic region, medical needs, and insurance network was created in [facility] Guide.? This list was provided to the RN AIDEN. Martha Almaguer, Discharge Planning Asst.
--- NOTE | 2023-01-05 13:36 | PHA.DC.MC.R ---
Pharmacy [facility] has performed discharge medication reconciliation and counseling for this patient. The patient's discharge medication list was reviewed for discrepancies and discrepancies were resolved. The patient was counseled on the following discharge medications and changes in medications for homegoing were reviewed. The Reason for Use, instructions for use, and potential side effects were reviewed for all new medications. The patient's questions regarding all of their medications were answered. 1. Allopurinol 300 mg PO BID with meals The patient was able to verbally demonstrate an understanding of their discharge medications. Medications at Discharge Home Medications allopurinol 300 mg tablet 300 mg PO BIDCM #60 tabs 01/05/23
--- NOTE | 2023-01-05 14:10 | CASEMGMT ---
Discharge Planning Referral sent to [facility] via [facility]. Martha Almaguer, Discharge Planning Asst.
--- NOTE | 2023-01-05 14:10 | CASEMGMT ---
Addendum entered by Chandrika Ramirez 01/05/23 16:01: Patient was accepted by [facility]. ELISSA WOLFE updated patient regarding acceptance. Patient had no further questions or concerns. ELISSA WOLFE updated Daughter Olga. Original Note: ELISSA WOLFE in to discuss HHC with patient. HHC list provided to patient. Patient prefers [facility] for first choice and [facility] for second. ELISSA WOLFE clarified with daughter that patient is estblished with Dr. Manning at [facility] and patient is interested in changing PCP. Patient and daughter agreeable to follow up with Dr. Manning and working on new PCP. ELISSA WOLFE called [facility] for referral and patient is outside their service area. ELISSA WOLFE updated discharging nursing home assistant administrator to send referral to [facility]. CM will continue to follow this patient and plan for a safe discharge.
--- NOTE | 2023-01-05 15:16 | CASEMGMT ---
Discharge Planning Patient has been accepted by [facility]. RN CM updated. Martha Almaguer, Discharge Planning Asst.
--- NOTE | 2023-01-05 15:52 | CHAPLAIN ---
Type of Pastoral Visit _x__ Initial Visit ___ Follow-up Visit ___ On-call Visit ___ General Patient Visit ___ Spiritual Assessment ___ Family Conference ___ Bereavement ___ Rapid Response ___ Code Blue ___ Other (describe below) Pastoral Care Referral From _x__ Patient ___ Family ___ Nurse ___ Physician ___ Construction Plant Operator ___ Motion Picture Narrator ___ Other (describe below) Sacrament/Intervention _x__ Active listening ___ Anointing ___ Gnosticism ___ Bereavement ___ Communion _x__ Pamela exploration ___ _x__ Life review _x__ Prayer ___ Reconciliation ___ Sacrament of Sick _x__ Supportive presence ___ Wedding ___ Other (describe below) Pastoral Comments patient is welcoming and speaks of recent revelation of blood cancer and her desire to forgo chemo treatments because i don't want to be sick and I just want to have good time left with my family; pt is concerned about her family as they and the younger generation do not appreciate the life lessons and importance of pamela like my parents taught me; pt states that she is fine with and I'll go see my then; pt talks about her family and then about the world situation which worries me but I don't want to be around to see what happens; pt was of the [employer] pamela and welcomes prayer
[2023-01-06 09:54] LABS: Pathologist Review Reviewed
[2023-01-07 12:46] LABS: Pathologist Review Reviewed
== END 2023-01-05 16:12 | disposition home or self-care (01) | DRG 835 ==
PROVIDERS: Family Medicine; Internal Medicine Medical Oncology; Visit Provider Internal Medicine
DX: C95.00 Acute leukemia of unspecified cell type not having achieved remission (principal); N17.9 Acute kidney failure, unspecified; D69.6 Thrombocytopenia, unspecified; I10 Essential (primary) hypertension; D63.0 Anemia in neoplastic disease; E83.39 Other disorders of phosphorus metabolism; E87.6 Hypokalemia; Z66 Do not resuscitate; E79.0 Hyperuricemia without signs of inflammatory arthritis and tophaceous disease
CPT/HCPCS: 36415; 76770; 80048; 80076; 81001; 82607; 82728; 83540; 83550; 83615; 83735; 84100; 84550; 85025; 87086; 87088; 97110; 97116; 97162; 97166; 97802; J7030; A4216; J1940

== ENCOUNTER 2023-01-11 18:19 | Inpatient (IN) | payer MEDICARE, SELFPAY ==
--- NOTE | 2023-01-11 18:16 | CT_ITS ---
INDICATION: Dyspnea, infiltrates EXAMINATION: CT Chest W/O Contrast Injection TECHNIQUE: Helically acquired images were obtained of the chest with sagittal and coronal reconstructed images. Individualized dose optimization techniques were used for this CT. COMPARISON: None. FINDINGS: LUNGS, PLEURA AND LARGE AIRWAYS: Bibasilar atelectasis versus infiltrates. 4 mm right upper lobe pulmonary nodule. Small to moderate right and small left pleural effusions. No pneumothorax. THYROID: Unremarkable. HEART AND PERICARDIUM: Coronary artery calcifications are present. Trace pericardial effusion. MEDIASTINUM AND BENIGNO: Enlarged mediastinal and hilar lymph nodes with the largest in the pretracheal region measuring 1.4 cm in short axis diameter. Esophagus is unremarkable. No hiatal hernia. VESSELS: No thoracic aortic aneurysm. UPPER ABDOMEN: The visualized upper abdomen is unremarkable. BONES: Acute minimally displaced fracture of the right 11th rib. Enlarged left axillary lymph node measuring 1.4 cm in short axis diameter. CT/Chest without Contrast IMPRESSION: 1. Mediastinal, hilar and left axillary lymphadenopathy. 2. Small to moderate right and small left pleural effusions. 3. Bibasilar atelectasis versus infiltrates. 4. Trace pericardial effusion. 5. 4 mm right upper lobe pulmonary nodule. Per Fleischner criteria, recommend follow-up CT of the chest in 12 months if the patient has increased risk factors for lung cancer. Otherwise no follow-up is recommended. 6. Acute fracture of the right 11th rib. Electronically Signed: Alvaro Longoria DO at 4:43 EDT ,
--- NOTE | 2023-01-11 18:16 | VDUE_ITS ---
Reason For Study: Right arm pain Right Proximal Right jugular vein is spontaneous, widely patent, phasic, with no intraluminal echogenicity noted. Right subclavian vein is spontaneous, widely patent, phasic, with no intraluminal echogenicity noted. Right Lower Arm Right radial vein is compressible. Right ulnar vein is compressible. Right Arm Right axillary vein is spontaneous, patent, phasic, competent, compressible and demonstrates augmentation. Right brachial vein is compressible. Right cephalic vein is compressible. Right basilic vein is compressible. Patient Safety Preliminary report printed to [facility]. VL/Venous Duplex US, Unilateral Interpretation Summary Deep veins of the right upper extremity are patent and compressible segmentally . There is no evidence of deep vein thrombosis. Superficial veins of the right upper extremity are patent and compressible segm entally. There is no evidence of superficial vein thrombosis. Ordering Physician: Ely Restrepo Performed By: Chandrika Garcia RVT ???
--- NOTE | 2023-01-11 18:23 | PCM.HOSP.N ---
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 on day of presentation of RUE discomfort without any swelling as well as pleuritic chest discomfort worse with any coughing or deep inspiratory effort prompting EMS call and transition to the ED at outside facility for evaluation. Outside hospital ED presentation vitals T97.6, HR 83, RR 16, 91% on RA but was noted to drop down at rest to 89% on RA, BP 163/45-->current T98.8, 94% on 2L, HR 78, RR 16-18, High-sensitivity troponin 8.8, D-dimer 812, CBC with WBC 93.7, hemoglobin 9.0, MCV 99, platelet 39, CMP with sodium 136, potassium 3.4, chloride 102, CO2 24.9, glucose 170, BUN/creatinine 17/2.01, hepatic profile with AST/ALT 17/23, alk phos 41, calcium 8.9, total bilirubin 0.5, GFR 23 otherwise not marked appearing, CXR with read per ED physician at outside facility with similar ill-defined opacities of the left lateral lung base may represent atelectasis versus infiltrate and now noted R perihilar infiltrate. In the outside hospital ED patient administered IV Zosyn x 1 3.375 mg. Discussed with outside facility ED physician and he noted that hospitalist at their facility had declined and that unfortunately I do not have access to duplex or VQ scan even potentially on Thursday. #1. Acute Mild Hypoxia with concern for Pneumonia, New Right Perihilar Infiltrate, prior noted illdefined L lateral lung bases opacities: Given new mild hypoxia and increasing infiltrates although previously had ruled out pneumonia will admit to medical surgical floor, will obtain CT of the chest without contrast to further elucidate, will maintain on oxygen with wean as tolerated to room air, maintain on ATC budesonide therapy, PRN albuterol, maintained on IV Zosyn and Vancomycin given recent hospitalization with MRSA screen and de-escalation off vancomycin if, HOB, IS parameters w/ pending sputum cultures, COVID PCR, full respiratory viral panel and urine antigens as well as procalcitonin. Blood cultures were not obtained at outside facility per ED prior to Zosyn IV antibiotic therapy. PT/OT/case management consultation for discharge planning. #2. Right upper extremity discomfort without any swelling as well as elevated D-dimer at outside hospital: Patient with discomfort to the right upper extremity with no edema or erythema, D-dimer elevated although not markedly to 812, will obtain VQ scan as well as right upper extremity duplex. As noted, if there is any evidence of clot then may consider possibly reinvolvement of hematology given significant issues with thrombocytopenia as poor candidate for anticoagulation at this point. #3. Acute leukemia with significantly elevated blasts: During recent presentation patient evaluated by Dr. Campbell secondary to significant leukocytosis with concern for acute leukemia of unclear type, peripheral smear with 50% blasts with recommended flow cytometry with patient preference for supportive care only and declined any transfer to a facility of larger status to manage acute leukemia with recommendation at that time for consideration hospice consultation, confirmed again at outside hospital ED that patient and family do not want any aggressive care or treatments for her cancer and understand the significance of this decision. Outside facility CBC upon current presentation with CBC with WBC 93.7, hemoglobin 9.0, platelet 39, will continue to trend CMP. Given patient's right upper extremity discomfort and elevated D-dimer will obtain VQ scan given kidney function and inability to utilize contrast at this point as well as right upper extremity duplex and if there is any evidence of clot then may consider reinvolvement of hematology given significant issues with thrombocytopenia as poor candidate for anticoagulation at this point. Has planned outpatient follow-up with Hem/Onc. #4. 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 During prior admission Uric acid level 25.8 on admission with normal potassium and phosphorus levels however eventually phosphorus did increase and patient was started on phosphate binders, Calcium normal. Prior admission Creatinine 3.53 upon presentation at that time and at discharge 2.54. Currently at OSH ED BUN/Cr 17/2.01, improved, will continue to trend CMP. #5. Thrombocytopenia: Likely related to acute leukemia, worsening since previously, outside hospital ED CBC with platelets 39, at recent discharge platelet 35 which was similar during the presentation, will continue to trend as this is slightly improved since prior. Significant thrombocytopenia does present an issue with any concept of anticoagulation. Has planned outpatient follow-up with Hem/Onc. #6. 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 Recently had anemia panel work-up thus will not repeat. Has planned outpatient follow-up with Hem/Onc. #7. Hypertension: From review of prior admission patient had been taking metoprolol primary for reported palpitations and she did have lower normal BP therefore it was held for improved perfusion, will continue to monitor blood pressure and add regimen for appropriate, PRN hydralazine. Of note she had previously been on also lisinopril low-dose which was discontinued given her significant kidney injury previously noted. #8. DVT prophylaxis: SCDs, will hold any chemoprophylaxis given significant thrombocytopenia while awaiting VQ scan-duplex ultrasound. #9. CODE status: DNR CCA, no intubation, no aggressive measures or interventions.
--- NOTE | 2023-01-11 20:25 | HP.PCM.HOS_ITS ---
HPI - General General Date of Admission: 01/11/23 Date of Service: 01/11/23 Chief Complaint: Dyspnea, cough, pleuritic chest discomfort. 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 on day of presentation of RUE discomfort without any swelling as well as pleuritic chest discomfort worse with any coughing or deep inspiratory effort prompting EMS call and transition to the ED at outside facility for evaluation. Outside hospital ED presentation vitals T97.6, HR 83, RR 16, 91% on RA but was noted to drop down at rest to 89% on RA, BP 163/45-->current T98.8, 94% on 2L, HR 78, RR 16-18, High-sensitivity troponin 8.8, D-dimer 812, CBC with WBC 93.7, hemoglobin 9.0, MCV 99, platelet 39, CMP with sodium 136, potassium 3.4, chloride 102, CO2 24.9, glucose 170, BUN/creatinine 17/2.01, hepatic profile with AST/ALT , alk phos 41, calcium 8.9, total bilirubin 0.5, GFR 23 otherwise not marked appearing, CXR with read per ED physician at outside facility with similar ill-defined opacities of the left lateral lung base may represent atelectasis versus infiltrate and now noted R perihilar infiltrate. In the outside hospital ED patient administered IV Zosyn x 1 3.375 mg. Discussed with outside facility ED physician and he noted that hospitalist at their facility had declined and that unfortunately I do not have access to duplex or VQ scan even potentially on Thursday. [facility] Medical History (Updated 01/11/23 @ 20:[address] Ely Restrepo MD) Acute leukemia [id number]-[id number] kidney injury Anemia History of removal of pessary Hypertension Prolapse of bladder Thrombocytopenia Home Medications allopurinol 300 mg tablet 300 mg PO BIDCM GOUT #60 tabs 01/05/23 [Rx Last Taken Unknown] sertraline 25 mg tablet 25 mg PO Q24H DEPRESSION 01/11/23 [History Last Taken Unknown] Allergy/AdvReac Type Severity Reaction Status Date / Time pineapple AdvReac Mild Nausea Verified 01/11/23 20:41 tomato AdvReac Mild Itching Verified 01/11/23 20:41 bees AdvReac Severe Anaphylaxis Uncoded 01/02/23 15:27 Family History (Updated 01/11/23 @ 20:[address] Ely Restrepo MD) Mother Hypertension Father Hypertension Heart disease PAF (paroxysmal atrial fibrillation) CVA (cerebral vascular accident) Surgical History (Updated 01/11/23 @ 20:[address] Ely Restrepo MD) History of surgery of uterus Social History (Updated 01/11/23 @ 18:[address] Ely Restrepo MD) household members: family Smoking Status: Never smoker alcohol intake: never substance use type: does not use ROS ROS Narrative Admission Review of Systems: CONSTITUTIONAL: No weight loss, fever, chills, + weakness or fatigue. HEENT: Eyes: No visual loss, blurred vision, double vision or yellow sclerae. Ears, Nose, Throat: No hearing loss, sneezing, congestion, runny nose or sore throat. SKIN: + Significant very staged ecchymoses to the extremities. CARDIOVASCULAR: + Pleuritic chest discomfort worse with cough/deep inspiratory effort. No chest pain, chest pressure or chest discomfort, palpitations, edema, orthopnea, syncopal events. RESPIRATORY: + Mild dyspnea, cough not markedly productive. No sputum, wheezing, hemoptysis. GASTROINTESTINAL: No anorexia, nausea, vomiting or diarrhea, abdominal pain, melena, BRBPR. GENITOURINARY: No dysuria, frequency, urgency or retention. NEUROLOGICAL: No headache, dizziness, syncope, paralysis, ataxia, numbness or tingling in the extremities, focal weakness, change in bowel or bladder control, seizure. MUSCULOSKELETAL: + muscle, back pain, joint pain or stiffness. HEMATOLOGIC: + anemia, easy bleeding and bruising. LYMPHATICS: No enlarged nodes. No history of splenectomy. PSYCHIATRIC: No history of depression or anxiety. ENDOCRINOLOGIC: No reports of sweating, cold or heat intolerance. No polyuria or polydipsia. ALLERGIES: + History of anaphylaxis. Physical Exam Narrative Physical Examination: General: Awake, alert, oriented x 3 and cooperative, seated upright in the MS bed, fatigued otherwise no acute distress. Skin: Normal color, normal turgor, no icterus, no cyanosis except significant various staged ecchymoses to extremities. HEENT: AT/NC, EOMI, PERRLA, mildly dry MM, no carotid bruits or JVD noted. Lungs: Diminished, greater bases, appropriate effort, no evidence of any distress, no rales, ronchi or wheezing. Heart: Regular rate and rhythm; no gallop, rub audible. Abdomen: Soft, obese, NTTP, ND, hyperactive BS, no appreciated HSM. Extremities: No cyanosis, no clubbing, bilateral ankle nonpitting edema. Neurological: Patient awake, alert, oriented as noted, cognitive function intact; pupils equally reactive to light and accommodation, cranial nerves II- XII grossly normal, moving all 4 extremities, no focal deficits, strength moderately global decreased. Psychiatric: Affect appears mildly flat, fatigued, no acute evidence of depressive or anxiety feelings. 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 on day of presentation of RUE discomfort without any swelling as well as pleuritic chest discomfort worse with any coughing or deep inspiratory effort prompting EMS call and transition to the ED at outside facility for evaluation. #1. Acute Mild Hypoxia with concern for Pneumonia, New Right Perihilar Infiltrate, prior noted illdefined L lateral lung bases opacities: Given new mild hypoxia and increasing infiltrates although previously had ruled out pneumonia will admit to medical surgical floor, will obtain CT of the chest without contrast to further elucidate, will maintain on oxygen with wean as tolerated to room air, maintain on ATC budesonide therapy, PRN albuterol, maintained on IV Zosyn and Vancomycin given recent hospitalization with MRSA screen and de-escalation off vancomycin if, HOB, IS parameters w/ pending sputum cultures, COVID PCR, full respiratory viral panel and urine antigens as well as procalcitonin. Blood cultures were not obtained at outside facility per ED prior to Zosyn IV antibiotic therapy. PT/OT/case management consultation for discharge planning. #2. Right upper extremity discomfort without any swelling as well as elevated D-dimer at outside hospital: Patient with discomfort to the right upper extremity with no edema or erythema, D-dimer elevated although not markedly to 8 12, will obtain VQ scan as well as right upper extremity duplex. As noted, if there is any evidence of clot then may consider possibly reinvolvement of hematology given significant issues with thrombocytopenia as poor candidate for anticoagulation at this point. #3. Acute leukemia with significantly elevated blasts: During recent presentation patient evaluated by Dr. Campbell secondary to significant leukocytosis with concern for acute leukemia of unclear type, peripheral smear with 50% blasts with recommended flow cytometry with patient preference for supportive care only and declined any transfer to a facility of larger status to manage acute leukemia with recommendation at that time for consideration hospice consultation, confirmed again at outside hospital ED that patient and family do not want any aggressive care or treatments for her cancer and understand the significance of this decision. Outside facility CBC upon current presentation with CBC with WBC 93.7, hemoglobin 9.0, platelet 39, will continue to trend CMP. Given patient's right upper extremity discomfort and elevated D-dimer will obtain VQ scan given kidney function and inability to utilize contrast at this point as well as right upper extremity duplex and if there is any evidence of clot then may consider reinvolvement of hematology given significant issues with thrombocytopenia as poor candidate for anticoagulation at this point. Has planned outpatient follow-up with Hem/Onc. #4. 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 During prior admission Uric acid level 25.8 on admission with normal potassium and phosphorus levels however eventually phosphorus did increase and patient was started on phosphate binders, Calcium normal. Prior admission Creatinine 3.53 upon presentation at that time and at discharge 2.54. Currently at OSH ED BUN/Cr 17/2.01, improved, will continue to trend CMP. #5. Thrombocytopenia: Likely related to acute leukemia, worsening since previously, outside hospital ED CBC with platelets 39, at recent discharge platelet 35 which was similar during the presentation, will continue to trend as this is slightly improved since prior. Significant thrombocytopenia does present an issue with any concept of anticoagulation. Has planned outpatient follow-up with Hem/Onc. #6. 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 Recently had anemia panel work-up thus will not repeat. Has planned outpatient follow-up with Hem/Onc. #7. Hypertension: From review of prior admission patient had been taking metoprolol primary for reported palpitations and she did have lower normal BP therefore it was held for improved perfusion, will continue to monitor blood pressure and add regimen for appropriate, PRN hydralazine. Of note she had previously been on also lisinopril low-dose which was discontinued given her significant kidney injury previously noted. #8. DVT prophylaxis: SCDs, will hold any chemoprophylaxis given significant thrombocytopenia while awaiting VQ scan-duplex ultrasound. #9. CODE status: Patient does not have healthcare power measurement operator or living will in place. She does note that if she needed to medical decisions made and was unable she would want her daughter and her grandson to make decisions for her. Discussed CODE status at length including difference between FULL code, DNR-CCA and DNR-CC status. Following discussions about the differences in these status, requested DNR-CCA, no intubation, no aggressive procedures or interventions. Advanced Care Planning Face to Face Time: 16 minutes. Charges/Coding Visit Charges Inpatient E&M: 02502 Init Hosp L3 Procedures Hospitalists Procedures: 32517 Advncd Care Plan 30 Min
[2023-01-11 20:31] VITALS: BMI 31.3
[2023-01-11 21:00] VITALS: BP 106/47; PULSE 74; RESP 16; TEMP 36.8; O2SAT 97
[2023-01-11] MEDS: Vancomycin HCl 1,750 MG in 0.9% Normal Saline (500mL Bag) 500 ML 250 MG IV (21:18)
[2023-01-11 21:34] LABS: Phosphorus 3.8 mg/dL (2.5-4.9); Procalcitonin 0.37 ng/mL (0.00-0.09)
--- NOTE | 2023-01-11 22:01 | NURSING ---
pT REFUSED SCD AT THIS TIME. MED REC VERIFIED W DAUGHTER HAO
--- NOTE | 2023-01-11 22:43 | NURSING ---
Off floor for procedure.
[2023-01-11] MEDS: Menthol/Lanolin/Calamine/Znox 113 GM Tube 1 APPLIC TOPICAL (23:47)
[2023-01-11] MEDS: Piperacil/Tazobactam 3.375 GM in 0.9% Normal Saline (50mL MB+) 50 ML IV (23:48)
[2023-01-12] VITALS (8 sets, daily range): BP systolic 104–126; BP diastolic 44–55; PULSE 65–74; RESP 16; TEMP 36.4–36.9; O2SAT 94–100; BMI 31.2
[2023-01-12 00:19] LABS: M R Staph aureus DNA By PCR Negative (Negative); Probe Check PASS; Specimen Processing Control PASS
--- NOTE | 2023-01-12 05:55 | NM_ITS ---
CLINICAL: 87-year-old female with history of elevation of the d-dimer. VENTILATION-PERFUSION LUNG SCINTIGRAPHY COMPARISON: Plain film chest x-ray 01/12/2023 FINDINGS: The patient was administered 50.1 mCi 99m Tc DTPA aerosol. The aerosol ventilation study demonstrates heterogeneous ventilation identified throughout the bilateral lung garg without corresponding radiographic changes defined on plain film chest x-ray dated 01/12/2023. Central clumping of the aerosol is noted in the bilateral hemithorax. Following the intravenous administration of 5.0 mCi of 99m Tc MAA the pulmonary perfusion study reveals uniform perfusion throughout both lung garg. There are no segmental or subsegmental perfusion defects identified. There are no ventilation-perfusion mismatches observed. NM/Lung Scan Vent/Perf IMPRESSION: 1. NORMAL 99m Tc MAA pulmonary perfusion imaging examination, according to PIOPED II interpretive criteria. (Sotsman et al, Radiology 246: 941, 2008 Sotstoyin et al, J Nucl Med 49: 1741, 2008). 2. Central clumping of the aerosol may be secondary to obstructive airway mechanics and or clinical tachypnea. Electronically Signed: Mauri Manning DO at 12:06 EDT ,
[2023-01-12] MEDS: Budesonide Respules 0.5 MG/2 ML AMPUL.NEB. INHALATION ×2 (06:45→19:21)
--- NOTE | 2023-01-12 07:03 | NURSING ---
update given to sylvia pts daughter per pts request.
[2023-01-12 07:06] LABS: Hematocrit 26.6 % (37-47); Hemoglobin 8.2 g/dL (12.0-15.0); Mean Corp Hgb Conc 30.8 g/dL (32-36); Mean Corpuscular Hgb 32.9 pg (27.0-32.0); Mean Corpuscular Volume 106.8 fL (81-99); POSITIVE COUNT YES; POSITIVE DIFFERENTIAL YES; POSITIVE MORPHOLOGY YES; Platelet Count 29 K/mm3 (150-450); RBC Distribution Width SD 62.1 fl (35.1-43.9); Red Blood Count 2.49 M/mm3 (4.2-5.4)
[2023-01-12 07:10] LABS: Differential Indicated MANUAL DIFF
[2023-01-12 07:35] LABS: Blast 66 % (0-0); Lymphocyte 11 % (19-41); Metamyelocyte 4 % (0-1); Monocyte 2 % (0-10); Neutrophil-Band 6 % (0-5); Neutrophil-Segmented 11 % (47-70); Total Cells Counted 100 (MANUAL DIFF)
[2023-01-12 07:36] LABS: ALB/GLOB Ratio 0.8 RATIO (0.9-2.4); AST(SGOT) 15 U/L (15-37); Alanine Aminotransfer ALT/SGPT 22 U/L (13-56); Albumin, Serum 2.8 g/dL (3.2-5.0); Alkaline Phosphatase 33 U/L (45-117); Anion Gap 4 (5-15); BUN 20 mg/dL (7-18); BUN/Creat Ratio 8.5 RATIO (10-20); Calcium,Total 8.9 mg/dL (8.5-10.1); Chloride 112 mmol/L (98-107); Creatinine, Serum 2.35 mg/dL (0.55-1.02); EST Glomerular Filtration Rate 21 mL/min (>60); Est Glom Filt Rate - Afr Amer 25 mL/min (>60); Estimated Creatinine Clearance 18.36 ml/min; Globulin 3.4 g/dL (2.2-4.2); Glucose 98 mg/dL (74-106); Platelet Estimate MKD DEC (ADEQ); Potassium 4.1 mmol/L (3.5-5.1); Protein, Total 6.2 g/dL (6.4-8.2); Red Cell Morphology NORM C+C NORMAL (NORM C&C); Sodium Level 140 mmol/L (136-145)
[2023-01-12 07:37] LABS: Absolute Neutrophil Count 18.7 X10^3/uL (2.0-7.7)
--- NOTE | 2023-01-12 09:21 | PCM.RX.CS ---
Consult Antibiotic Management Pharmacy has been consulted to manage selected antiobiotic: Vancomycin Type of Intervention Type of Consult: New start Suspected Infection Suspected Infection: Pneumonia Prior Doses of Antibiotics Prior Doses of Antibiotics Received/Current Regimen: 01/11/23 @ 8 Labs Labs: Sodium 140 mmol/L (136-145) 01/12/23 06:34 Potassium 4.1 mmol/L (3.5-5.1) 01/12/23 06:34 Chloride 112 mmol/L (98-107) H 01/12/23 06:34 Carbon Dioxide 24.0 mmol/L (21.0-32.0) 01/12/23 06:34 Anion Gap 4 (5-15) L 01/12/23 06:34 BUN 20 mg/dL (7-18) H 01/12/23 06:34 Creatinine 2.35 mg/dL (0.55-1.02) H 01/12/23 06:34 Est GFR (MDRD) Af Amer 25 mL/min (>60) L 01/12/23 06:34 Est GFR (MDRD) Non-Af 21 mL/min (>60) L 01/12/23 06:34 BUN/Creatinine Ratio 8.5 RATIO (10-20) L 01/12/23 06:34 Glucose 98 mg/dL (74-106) 01/12/23 06:34 Microbiology Microbiology: Microbiology 01/11/23 19:45 Mucosa - Nasopharyngeal Coronavirus COVID-19 PCR - Final 01/11/23 19:45 Mucosa - Nasopharyngeal Respiratory Panel (PCR) - Final 01/12/23 00:28 Urine, Clean Catch Streptococcus pneumoniae Antigen (M - Final 01/12/23 00:28 Urine, Clean Catch Legionella Antigen - Final Dosing Weight Weight used for dosin kg Estimated Creatinine Clearance Estimated Creatinine Clearance: 18 Goal Trough Goal Trough: 15-20 mcg/mL Pharmacy Plan for Drug Dosing Pharmacy Plan for Drug Dosing: Random Vancomycin level schedule 01/13/23 @ 0600 Pharmacy Service will continue to monitor and adjust dosing as required. Date/Time Labs Ordered Labs to be done on [date and time ordered]: 01/13/23 @ 0600
--- NOTE | 2023-01-12 11:00 | RAD_ITS ---
INDICATION: post nuclear med EXAMINATION/TECHNIQUE: X-RAY - XR Chest 2 Views COMPARISON: CT dated January 11, 2023 FINDINGS: LINES/DEVICES: None. LUNGS: There are persistent bilateral pleural effusions. No pneumothorax. MEDIASTINUM AND CARDIOVASCULAR STRUCTURES: There is cardiomegaly. Central airways and mediastinal contour are unremarkable. BONES AND SOFT TISSUES: Unremarkable. RAD/Chest PA and Lateral IMPRESSION: Bilateral pleural effusions, cannot exclude associated bibasilar consolidation. Cardiomegaly. Electronically Signed: Leandra Napoles MD at 12:52 EDT ,
--- NOTE | 2023-01-12 11:26 | PCM.PN.HOSP ---
Subjective Subjective Doing well, no issues overnight Objective Data Objective Data Vital Signs: Vital Signs Temp Pulse Resp BP Pulse Ox O2 Del Method O2 Flow Rate 97.5 F L 73 16 104/44 L 97 Nasal Cannula 2 01/12/23 09:40 01/12/23 09:40 01/12/23 09:40 01/12/23 09:40 01/12/23 09:40 01/12/23 09:40 01/12/23 09:40 Oxygen Flow Rate (L/min) 2 Oxygen Delivery Method Nasal Cannula Weight: 154 lb 15.759 oz Body Mass Index (BMI) 31.2 Intake & Output: Intake and Output for Last 24 Hours 01/11/23 01/12/23 01/13/23 03:59 03:59 03:59 Intake Total 710 / 710 200 / 200 Balance 710 / 710 200 / 200 Lab / Micro Data 01/12/23 06:34 01/12/23 06:34 Labs: Laboratory Results - last 24 hr 01/11/23 20:47: Phosphorus 3.8, Magnesium 2.0, Procalcitonin 0.37 H 01/11/23 21:50: MRSA (PCR) Negative 01/12/23 06:34: WBC 110.0 H*, RBC 2.49 L, Hgb 8.2 L, Hct 26.6 L, MCV 106.8 H, MCH 32.9 H, MCHC 30.8 L, RDW Std Deviation 62.1 H, RDW Coeff of Macy 18.0 H, Plt Count 29 L*, Neut % (Auto) Not Reportable, Absolute Neuts (auto) 18.7 H, Absolute Lymphs (auto) 12.10 H, Total Counted 100, Neutrophils % (Manual) 11 L, Band Neutrophils % 6 H, Lymphocytes % (Manual) 11 L, Monocytes % (Manual) 2, Metamyelocytes % 4 H, Blast Cells % 66 H*, Diff Path Review May avni, Platelet Estimate MKD DEC, RBC Morphology NORM C+C, Sodium 140, Potassium 4.1, Chloride 112 H, Carbon Dioxide 24.0, Anion Gap 4 L, BUN 20 H, Creatinine 2.35 H, Estim Creat Clear Calc 18.36, Est GFR (MDRD) Af Amer 25 L, Est GFR (MDRD) Non-Af 21 L, BUN/Creatinine Ratio 8.5 L, Glucose 98, Calcium 8.9, Total Bilirubin 0.60, AST 15, ALT 22, Alkaline Phosphatase 33 L, Total Protein 6.2 L, Albumin 2.8 L, Globulin 3.4, Albumin/Globulin Ratio 0.8 L Micro: Microbiology 01/11/23 19:45 Mucosa - Nasopharyngeal Coronavirus COVID-19 PCR - Final 01/11/23 19:45 Mucosa - Nasopharyngeal Respiratory Panel (PCR) - Final 01/12/23 00:28 Urine, Clean Catch Streptococcus pneumoniae Antigen (M - Final 01/12/23 00:28 Urine, Clean Catch Legionella Antigen - Final Radiography Diagnostic Testing: Radiology Impression Chest CT 01/11/23 18:16 IMPRESSION: 1. Mediastinal, hilar and left axillary lymphadenopathy. 2. Small to moderate right and small left pleural effusions. 3. Bibasilar atelectasis versus infiltrates. 4. Trace pericardial effusion. 5. 4 mm right upper lobe pulmonary nodule. Per Fleischner criteria, recommend follow-up CT of the chest in 12 months if the patient has increased risk factors for lung cancer. Otherwise no follow-up is recommended. 6. Acute fracture of the right 11th rib. Electronically Signed: Alvaro Longoria DO at 4:43 EDT , Physical Exam Narrative General: Alert, Oriented x3, Cooperative, No apparent distress HEENT: Atraumatic, PERRLA, EOMI, Normocephalic, hard of hearing Oral: Moist Mucosa Neck: Supple, No JVD Lungs: Diminished, Normal air movement, No rhonchi, No wheeze, No rales Cardiovascular: Regular rate, Regular Rhythm, Normal S1, Normal S2, No murmurs Abdomen: Soft, Non Tender, Non-Distended, No Hepato-splenomegaly Extremities: No edema, Capillary Refill Less than 3 Seconds Skin: No rashes, No breakdown Musculoskeletal: No Tenderness to Palpation of Joints or Extremities Neurological: Cranial nerves II-XII grossly intact, Motor Exam 5/5 strength throughout, Sensory exam intact to light touch and pain Psych/Mental Status: Flat Assessment & Plan Assessment/Plan (1) Pneumonia: PLAN: Plan 1. Community-acquired pneumonia with mild hypoxia ? Continue with antibiotics pending culture data ? Strep and Legionella antigens are negative ? COVID and respiratory panel are negative 2. 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 She does not want any treatment acutely ? We will continue with outpatient follow follow-up ? Will continue to monitor her blood work, continue with SCDs ? She is having some right upper extremity discomfort we will obtain a VQ scan and right upper extremity duplex ? She was recently admitted and her creatinine was at 3.5 it has steadily improved to 2.35 but we are unclear as to what her baseline creatinine is therefore this may be an MIKKI on CKD 3. Hypertension ? She was on metoprolol and lisinopril as an outpatient ? These were held therefore we will provide a as needed hydralazine ? We will continue to hold lisinopril secondary to her kidney function ? We will monitor and make adjustments as necessary DVT: SCDs Charges/Coding Visit Charges Inpatient E&M: 81822 Subs Hosp L2
[2023-01-12] MEDS: Menthol/Lanolin/Calamine/Znox 113 GM Tube 1 APPLIC TOPICAL ×4 (12:14→21:58)
[2023-01-12] MEDS: 0.9% Saline Lock 10 ML Syringe IV ×2 (12:17→12:33)
[2023-01-12] MEDS: Piperacil/Tazobactam 3.375 GM in 0.9% Normal Saline (50mL MB+) 50 ML IV ×2 (12:17→21:57)
[2023-01-12] MEDS: HYDROmorphone 0.5 MG/0.5 ML SYRINGE IV (12:32)
--- NOTE | 2023-01-12 13:34 | CASEMGMT ---
Discharge Planning Res[facility]. Martha Almaguer, Discharge Planning Asst.
--- NOTE | 2023-01-12 14:59 | CASEMGMT ---
ELISSA WOLFE readmission note: Index admission: Admitted 01/02/23 w/leukemia, MIKKI, and PNA. Pt discharged home w/[facility]. Current admission: Admitted 01/11/23 with PNA and hypoxia. 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 Per Dr Lorenzo, pt does not want any treatment for the leukemia and pt to continue with OP follow-up. ELISSA WOLFE to room to talk w/pt. Pt resting in bed. ELISSA WOLFE introduced self and role. Discussed discharge planning. Pt lives alone in an appt and states she wishes to discharge home, stating she has good family support. She states, if needed, either her grandson, Earl, or daughter, Olga, could stay w/her to assist her. She states Earl lives about 1/2 mile away and Olga is also close. She states she went to an appt w/PCP, Dr Llanos, last week and has an upcoming appt to meet w/oncology on Thu, to discuss the leukemia and goals of care. She states, depending on this meeting, she may end up going on hospice, but she is not sure yet. Her daughter, Olga, will be taking her to this appt. She states she is still active w/[facility] but further [facility] appts are pending until after that meeting and that [facility] is supposed to call her daughter, Olga, afterwards to discuss the plan. She states she would like to resume with [facility] @ discharge for now and denies wanting list of other [facility] options. Call placed to [facility] @ [facility] to notify her of pt's admission to [facility]. Pt states she is taking her medication as prescribed. Pt currently on oxygen and does not have home O2. She has no preference of DME co, should she qualify for home O2 @ discharge. She does not have a pulse ox. ELISSA WOLFE recommended she get one, but she states she has limited resources/income and states is not sure if she can afford to get one. She was made aware one can be provided to her @ discharge if she qualifies for O2. She voices appreciation. Pt denies having other discharge planning needs or concerns. Plan: Home w/Resumption of HHC: SN and PT and family support. Zelda LOCKEN RN CM
[2023-01-13] VITALS (10 sets, daily range): BP systolic 105–121; BP diastolic 43–56; PULSE 66–81; RESP 13–20; TEMP 36.7–36.9; O2SAT 93–99; BMI 31.6
[2023-01-13 06:24] LABS: Hematocrit 26.3 % (37-47); Hemoglobin 7.9 g/dL (12.0-15.0); Mean Corpuscular Hgb 32.2 pg (27.0-32.0); Mean Corpuscular Volume 107.3 fL (81-99); POSITIVE COUNT YES; POSITIVE DIFFERENTIAL YES; POSITIVE MORPHOLOGY YES; RBC Distribution Width CV 18.4 % (11.6-14.6); RBC Distribution Width SD 65.4 fl (35.1-43.9); Red Blood Count 2.45 M/mm3 (4.2-5.4)
[2023-01-13 06:38] LABS: Differential Indicated MANUAL DIFF; Platelet Count 26 K/mm3 (150-450); White Blood Count 109.9 K/mm3 (4.4-11.0)
[2023-01-13 06:45] LABS: Anion Gap 3 (5-15); BUN 24 mg/dL (7-18); BUN/Creat Ratio 8.5 RATIO (10-20); Calcium,Total 8.8 mg/dL (8.5-10.1); Chloride 112 mmol/L (98-107); Creatinine, Serum 2.83 mg/dL (0.55-1.02); EST Glomerular Filtration Rate 17 mL/min (>60); Est Glom Filt Rate - Afr Amer 20 mL/min (>60); Estimated Creatinine Clearance 15.25 ml/min; Glucose 104 mg/dL (74-106); Potassium 3.9 mmol/L (3.5-5.1); Sodium Level 138 mmol/L (136-145)
[2023-01-13 06:46] LABS: Vancomycin, Random Level 17.7 ug/mL (0.0-15.0)
[2023-01-13 07:13] LABS: Anisocytosis 1+; Blast 63 % (0-0); Eosinophil 1 % (0-5); Lymphocyte 8 % (19-41); Monocyte 1 % (0-10); Neutrophil-Band 11 % (0-5); Neutrophil-Segmented 16 % (47-70); Platelet Estimate MKD DEC (ADEQ); Total Cells Counted 100 (MANUAL DIFF)
[2023-01-13 07:14] LABS: Absolute Lymphocyte Count 8.79 X10^3/uL (0.83-4.51); Absolute Neutrophil Count 29.7 X10^3/uL (2.0-7.7); Hypochromasia 1+; Lymphocyte # 8.79 X10^3/ul (0.83-4.51); Macrocytosis 1+; Neutrophil # 29.67 X10^3/uL (2.7-7.7)
[2023-01-13] MEDS: Budesonide Respules 0.5 MG/2 ML AMPUL.NEB. INHALATION ×2 (07:36→19:02)
--- NOTE | 2023-01-13 08:39 | PCM.RX.CS ---
Consult Antibiotic Management Pharmacy has been consulted to manage selected antiobiotic: Vancomycin Type of Intervention Type of Consult: Follow-up Suspected Infection Suspected Infection: Pneumonia Labs Labs: Sodium 138 mmol/L (136-145) 01/13/23 06:00 Potassium 3.9 mmol/L (3.5-5.1) 01/13/23 06:00 Chloride 112 mmol/L (98-107) H 01/13/23 06:00 Carbon Dioxide 23.0 mmol/L (21.0-32.0) 01/13/23 06:00 Anion Gap 3 (5-15) L 01/13/23 06:00 BUN 24 mg/dL (7-18) H 01/13/23 06:00 Creatinine 2.83 mg/dL (0.55-1.02) H 01/13/23 06:00 Est GFR (MDRD) Af Amer 20 mL/min (>60) L 01/13/23 06:00 Est GFR (MDRD) Non-Af 17 mL/min (>60) L 01/13/23 06:00 BUN/Creatinine Ratio 8.5 RATIO (10-20) L 01/13/23 06:00 Glucose 104 mg/dL (74-106) 01/13/23 06:00 Random Vancomycin 17.7 ug/mL (0.0-15.0) H 01/13/23 06:00 Microbiology Microbiology: Microbiology 01/11/23 19:45 Mucosa - Nasopharyngeal Coronavirus COVID-19 PCR - Final 01/11/23 19:45 Mucosa - Nasopharyngeal Respiratory Panel (PCR) - Final 01/12/23 00:28 Urine, Clean Catch Streptococcus pneumoniae Antigen (M - Final 01/12/23 00:28 Urine, Clean Catch Legionella Antigen - Final Goal Trough Goal Trough: 15-20 mcg/mL Pharmacy Plan for Drug Dosing Pharmacy Plan for Drug Dosing: VANCOMYCIN LEVEL RECEIVED Current Vancomycin Dose: on hold due to renal function Number of Doses Received: x1 1750mg dose on 01/11/23 at 2118 Vancomycin Level: random level resulted at 17.7 Hours Since Last Dose: 33 hours since last dose Renal Function: SrCr 2.83 Renal Function Trend: SrCr increasing (was 2.35 on 01/11/23) Lab/Micro: Vancomycin Plan/Comments: recommend a 500mg x1 dose due to random level of 17.7 and increasing SrCr. Pending Level: 01/14/23 at 0600 Pharmacy Service will continue to monitor and adjust dosing as required. Follow-Up Labs Follow-Up Labs: Trough: Vancomycin (01/14/23 at 0600)
[2023-01-13] MEDS: guaiFENesin 10 ML UDC (200MG/10ML) 20 ML PO (08:58)
[2023-01-13] MEDS: Menthol/Lanolin/Calamine/Znox 113 GM Tube 1 APPLIC TOPICAL ×2 (08:59→14:43)
--- NOTE | 2023-01-13 08:59 | PN.HOSP_ITS ---
Subjective Subjective Feels little bit better today, no issues overnight Objective Data Objective Data Vital Signs: Vital Signs Temp Pulse Resp BP Pulse Ox O2 Del Method O2 Flow Rate 98.2 F 78 18 121/56 H 97 Nasal Cannula 2 01/13/23 03:30 01/13/23 07:36 01/13/23 07:36 01/13/23 03:30 01/13/23 07:36 01/13/23 08:50 01/13/23 08:50 Oxygen Flow Rate (L/min) 2 Oxygen Delivery Method Nasal Cannula Weight: 156 lb 12.8 oz Body Mass Index (BMI) 31.6 Intake & Output: Intake and Output for Last 24 Hours 01/12/23 01/13/23 01/14/23 03:59 03:59 03:59 Intake Total 710 / 710 1250 / 1250 300 / 300 Balance 710 / 710 1250 / 1250 300 / 300 Lab / Micro Data 01/13/23 06:00 01/13/23 06:00 Labs: Laboratory Results - last 24 hr 01/13/23 06:00: WBC 109.9 H*, RBC 2.45 L, Hgb 7.9 L, Hct 26.3 L, MCV 107.3 H, MCH 32.2 H, MCHC 30.0 L, RDW Std Deviation 65.4 H, RDW Coeff of Macy 18.4 H, Plt Count 26 L*, MPV TNP, Neut % (Auto) Not Reportable, Absolute Neuts (auto) 29.7 H , Absolute Lymphs (auto) 8.79 H, Total Counted 100, Neutrophils % (Manual) 16 L, Band Neutrophils % 11 H, Lymphocytes % (Manual) 8 L, Monocytes % (Manual) 1, Eosinophils % (Manual) 1, Blast Cells % 63 H*, Diff Path Review May foll, Platelet Estimate MKD DEC, Hypochromasia 1+, Anisocytosis 1+, Macrocytosis 1+, Sodium 138, Potassium 3.9, Chloride 112 H, Carbon Dioxide 23.0, Anion Gap 3 L, BUN 24 H, Creatinine 2.83 H, Estim Creat Clear Calc 15.25, Est GFR (MDRD) Af Amer 20 L, Est GFR (MDRD) Non-Af 17 L, BUN/Creatinine Ratio 8.5 L, Glucose 104, Calcium 8.8, Random Vancomycin 17.7 H Micro: Microbiology 01/11/23 19:45 Mucosa - Nasopharyngeal Coronavirus COVID-19 PCR - Final 01/11/23 19:45 Mucosa - Nasopharyngeal Respiratory Panel (PCR) - Final 01/12/23 00:28 Urine, Clean Catch Streptococcus pneumoniae Antigen (M - Final 01/12/23 00:28 Urine, Clean Catch Legionella Antigen - Final Radiography Diagnostic Testing: Radiology Impression Venous Doppler Study 01/11/23 18:16 Interpretation Summary Deep veins of the right upper extremity are patent and compressible segmentally. There is no evidence of deep vein thrombosis. Superficial veins of the right upper extremity are patent and compressible segmentally. There is no evidence of superficial vein thrombosis. Ordering Physician: Ely Restrepo Performed By: Chandrika Garcia RVT ??? Lung Scan-VQ NM 01/12/23 05:55 IMPRESSION: 1. NORMAL 99m Tc MAA pulmonary perfusion imaging examination, according to PIOPED II interpretive criteria. (Sotsman et al, Radiology 246: 941, 2008 Sotstoyin et al, J Nucl Med 49: 1741, 2008). 2. Central clumping of the aerosol may be secondary to obstructive airway mechanics and or clinical tachypnea. Electronically Signed: Mauri Manning DO at 12:06 EDT , Chest X-Ray 01/12/23 11:00 IMPRESSION: Bilateral pleural effusions, cannot exclude associated bibasilar consolidation. Cardiomegaly. Electronically Signed: Leandra Napoles MD at 12:52 EDT , Physical Exam Narrative General: Alert, Oriented x3, Cooperative, No apparent distress HEENT: Atraumatic, PERRLA, EOMI, Normocephalic, hard of hearing Oral: Moist Mucosa Neck: Supple, No JVD Lungs: Diminished, Normal air movement, No rhonchi, No wheeze, No rales Cardiovascular: Regular rate, Regular Rhythm, Normal S1, Normal S2, No murmurs Abdomen: Soft, Non Tender, Non-Distended, No Hepato-splenomegaly Extremities: No edema, Capillary Refill Less than 3 Seconds Skin: No rashes, No breakdown Musculoskeletal: No Tenderness to Palpation of Joints or Extremities Neurological: Cranial nerves II-XII grossly intact, Motor Exam 5/5 strength throughout, Sensory exam intact to light touch and pain Psych/Mental Status: Flat Assessment & Plan Assessment/Plan (1) Pneumonia: PLAN: Plan 1. Community-acquired pneumonia with mild hypoxia ? Continue with Zosyn, will discontinue vancomycin as her MRSA screen was negative ? Strep and Legionella antigens are negative ? COVID and respiratory panel are negative 2. 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 She does not want any treatment acutely ? We will continue with outpatient follow follow-up ? Will continue to monitor her blood work, continue with SCDs ? She is having some right upper extremity discomfort we will obtain a VQ scan and right upper extremity duplex ? She was recently admitted and her creatinine was at 3.5 it has steadily improved to 2.35 but we are unclear as to what her baseline creatinine is therefore this may be an MIKKI on CKD 3. Hypertension ? She was on metoprolol and lisinopril as an outpatient ? These were held therefore we will provide a as needed hydralazine ? We will continue to hold lisinopril secondary to her kidney function ? We will monitor and make adjustments as necessary DVT: SCDs Charges/Coding Visit Charges Inpatient E&M: 49959 Subs Hosp L2
[2023-01-13] MEDS: Piperacil/Tazobactam 3.375 GM in 0.9% Normal Saline (50mL MB+) 50 ML IV ×2 (09:08→23:01)
[2023-01-13 10:22] LABS: Pathologist Review Reviewed
[2023-01-13 13:15] LABS: Pathologist Review Reviewed
--- NOTE | 2023-01-13 17:23 | CASEMGMT ---
Social Work - Advanced Directive Validation Patient was marked as having POAHC and LW upon admission. Could not find any scanned documents in the EMR. Met with patient who reports never actually filled the papers out, but that would be daughter Olga and grandson Earl as decision makers if needed. Patient okay with SW calling Olga to see if Olga might have the paperwork. While in the room, patient expressed concern about being able to use a wheelchair to get to a doctor's appointment tomorrow, as thinks the appointment is around the hospital somewhere and doesn't feel up to walking so far. Called the daughter Olga. Olga reports patient has not completed advanced directives. Olga reports the appointment tomorrow is with Dr. Campbell. Educated Olga that could use a hospital wheelchair at the main entrance to wheel patient to Dr. Campbell's office, as office is within the [facility] premises. Olga thanked ALCON for information. Further chart review and noted patient has been given advanced directive information earlier in the month, as well as information on who to call should patient choose to complete directives. Patient did not voice any intent to complete when this bond underwriter was in the room. Patient has no advanced directives at this time. Next decision maker would be the patient's daughter and/or any other adult children. -NACHO Cohen
[2023-01-13] MEDS: 0.9% Normal Saline (250mL Bag) 250 ML 15 ML IV (23:06)
[2023-01-14] VITALS (12 sets, daily range): BP systolic 116–141; BP diastolic 51–66; PULSE 69–93; RESP 16–20; TEMP 36.6–37.2; O2SAT 90–96; BMI 31.6
[2023-01-14] MEDS: Acetaminophen 325 MG Tablet 650 MG PO (00:10)
[2023-01-14 06:22] LABS: Hemoglobin 7.5 g/dL (12.0-15.0); Mean Corp Hgb Conc 31.3 g/dL (32-36); Mean Corpuscular Hgb 32.5 pg (27.0-32.0); Mean Corpuscular Volume 103.9 fL (81-99); Mean Platelet Vol. 13.2 fl (6.2-12.0); POSITIVE COUNT YES; POSITIVE DIFFERENTIAL YES; POSITIVE MORPHOLOGY YES; RBC Distribution Width CV 18.5 % (11.6-14.6); RBC Distribution Width SD 62.4 fl (35.1-43.9); Red Blood Count 2.31 M/mm3 (4.2-5.4)
[2023-01-14 06:39] LABS: Anion Gap 4 (5-15); BUN 29 mg/dL (7-18); BUN/Creat Ratio 8.4 RATIO (10-20); Calcium,Total 8.8 mg/dL (8.5-10.1); Chloride 111 mmol/L (98-107); Creatinine, Serum 3.45 mg/dL (0.55-1.02); EST Glomerular Filtration Rate 13 mL/min (>60); Est Glom Filt Rate - Afr Amer 16 mL/min (>60); Estimated Creatinine Clearance 12.69 ml/min; Glucose 104 mg/dL (74-106); Sodium Level 139 mmol/L (136-145)
[2023-01-14 06:42] LABS: Differential Indicated MANUAL DIFF; Platelet Count 26 K/mm3 (150-450); White Blood Count 120.5 K/mm3 (4.4-11.0)
--- NOTE | 2023-01-14 06:53 | NURSING ---
Pt anxious this morning. emotional support provided and pt assisted in dialing the number for her nephew, who she reports is at work in the construction field. pt reports that she is worried about today and is anxious to get home.
[2023-01-14 06:54] LABS: Vancomycin, Random Level 15.8 ug/mL (0.0-15.0)
[2023-01-14 07:12] LABS: Metamyelocyte 2 % (0-1); Neutrophil-Band 8 % (0-5); Neutrophil-Segmented 5 % (47-70); Total Cells Counted 100 (MANUAL DIFF)
[2023-01-14 07:13] LABS: Anisocytosis 1+; Basophil 0 % (0-1); Blast 68 % (0-0); Eosinophil 2 % (0-5); Hypochromasia 1+; Lymphocyte 13 % (19-41); Macrocytosis 1+; Monocyte 0 % (0-10); Myelocyte 2 % (0-0); Platelet Estimate MKD DEC (ADEQ)
[2023-01-14 07:14] LABS: Absolute Lymphocyte Count 15.66 X10^3/uL (0.83-4.51); Absolute Neutrophil Count 15.7 X10^3/uL (2.0-7.7); Lymphocyte # 15.66 X10^3/ul (0.83-4.51); Neutrophil # 15.66 X10^3/uL (2.7-7.7)
[2023-01-14] MEDS: LORazepam 1 MG Tablet PO (08:58)
[2023-01-14] MEDS: Menthol/Lanolin/Calamine/Znox 113 GM Tube 1 APPLIC TOPICAL (08:58)
[2023-01-14] MEDS: Piperacil/Tazobactam 3.375 GM in 0.9% Normal Saline (50mL MB+) 50 ML IV ×2 (09:52→21:31)
--- NOTE | 2023-01-14 10:30 | PN.HOSP_ITS ---
Subjective Subjective Panic attack this morning necessitating Ativan. Discussed with her the treatability of her cancer and awaiting daughter arrival at around 1 PM have a further family discussion Objective Data Objective Data Vital Signs: Vital Signs Temp Pulse Resp BP Pulse Ox O2 Del Method O2 Flow Rate 98.9 F 80 20 H 140/66 H 91 Room Air 1.5 01/14/23 07:53 01/14/23 07:53 01/14/23 07:53 01/14/23 07:53 01/14/23 07:53 01/14/23 07:53 01/14/23 07:26 Oxygen Flow Rate (L/min) 1.5 Oxygen Delivery Method Room Air Weight: 157 lb 3.033 oz Body Mass Index (BMI) 31.6 Intake & Output: Intake and Output for Last 24 Hours 01/13/23 01/14/23 01/15/23 03:59 03:59 03:59 Intake Total 1250 / 1250 1001.29 / 1001.29 120 / 120 Output Total 200 / 200 175 / 175 Balance 1250 / 1250 801.29 / 801.29 -55 / -55 Lab / Micro Data 01/14/23 06:05 01/14/23 06:05 Labs: Laboratory Results - last 24 hr 01/13/23 06:00: Diff Path Review Reviewed 01/14/23 06:05: WBC 120.5 H*, RBC 2.31 L, Hgb 7.5 L, Hct 24.0 L, MCV 103.9 H, MCH 32.5 H, MCHC 31.3 L, RDW Std Deviation 62.4 H, RDW Coeff of Macy 18.5 H, Plt Count 26 L*, MPV 13.2 H, Neut % (Auto) Not Reportable, Absolute Neuts (auto) 15.7 H, Absolute Lymphs (auto) 15.66 H, Total Counted 100, Neutrophils % (Manual) 5 L, Band Neutrophils % 8 H, Lymphocytes % (Manual) 13 L, Monocytes % (Manual) 0, Eosinophils % (Manual) 2, Basophils % (Manual) 0, Metamyelocytes % 2 H, Myelocytes % 2 H, Blast Cells % 68 H*, Diff Path Review May , Platelet Estimate MKD DEC, Hypochromasia 1+, Anisocytosis 1+, Macrocytosis 1+, Sodium 139, Potassium 4.0, Chloride 111 H, Carbon Dioxide 24.0, Anion Gap 4 L, BUN 29 H , Creatinine 3.45 H, Estim Creat Clear Calc 12.69, Est GFR (MDRD) Af Amer 16 L, Est GFR (MDRD) Non-Af 13 L, BUN/Creatinine Ratio 8.4 L, Glucose 104, Calcium 8.8, Random Vancomycin 15.8 H 01/14/23 08:10: Blood Type B POSITIVE, Antibody Screen NEGATIVE, Crossmatch See Detail Micro: Microbiology 01/11/23 19:45 Mucosa - Nasopharyngeal Coronavirus COVID-19 PCR - Final 01/11/23 19:45 Mucosa - Nasopharyngeal Respiratory Panel (PCR) - Final 01/12/23 00:28 Urine, Clean Catch Streptococcus pneumoniae Antigen (M - Final 01/12/23 00:28 Urine, Clean Catch Legionella Antigen - Final Physical Exam Narrative General: Alert, Oriented x3, Cooperative, No apparent distress HEENT: Atraumatic, PERRLA, EOMI, Normocephalic, hard of hearing Oral: Moist Mucosa Neck: Supple, No JVD Lungs: Diminished, Normal air movement, No rhonchi, No wheeze, No rales Cardiovascular: Regular rate, Regular Rhythm, Normal S1, Normal S2, No murmurs Abdomen: Soft, Non Tender, Non-Distended, No Hepato-splenomegaly Extremities: No edema, Capillary Refill Less than 3 Seconds Skin: No rashes, No breakdown Musculoskeletal: No Tenderness to Palpation of Joints or Extremities Neurological: Cranial nerves II-XII grossly intact, Motor Exam 5/5 strength throughout, Sensory exam intact to light touch and pain Psych/Mental Status: Anxious Assessment & Plan Assessment/Plan (1) Pneumonia: PLAN: Plan 1. Community-acquired pneumonia with mild hypoxia ? Continue with Zosyn, will discontinue vancomycin as her MRSA screen was negative ? Strep and Legionella antigens are negative ? COVID and respiratory panel are negative 2. 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 She does not want any treatment acutely ? We will continue with outpatient follow follow-up ? We will plan for a 1 unit transfusion today ? VQ scan is unremarkable as is right upper extremity duplex ? She was recently admitted and her creatinine was at 3.5 it has steadily improved to 2.35 but we are unclear as to what her baseline creatinine is therefore this may be an MIKKI on CKD ? Had a 20-minute discussion on advance care planning with her and her daughter discussing prognosis and the role for hospice care 3. Hypertension ? She was on metoprolol and lisinopril as an outpatient ? These were held therefore we will provide a as needed hydralazine ? We will continue to hold lisinopril secondary to her kidney function ? We will monitor and make adjustments as necessary DVT: SCDs Charges/Coding Visit Charges Inpatient E&M: 89722 Subs Hosp L2 Procedures Hospitalists Procedures: 35131 Advncd Care Plan 30 Min
--- NOTE | 2023-01-14 10:56 | NURSING ---
after speaking with Dr mcgee, pt is agreeable to unit of blood and it is currently running-pt tolerating well
--- NOTE | 2023-01-14 13:51 | CASEMGMT ---
Social Work SW received referral for hospice consultation. SW spoke with pt's dgt Olga on the phone. Olga and pt met with physician short time ago and are agreeable to hospice referral. Per dgt, pt will likely not be able to return home and will need shelter placement. SW explained that if pt chooses a nursing facility, pt will be responsible for the payment. Dgt uncertain if pt has finances to do so. Olga is understanding that [facility] will be contacting her to set up an appointment. Olga to speak with pt's grandson regarding pt's finances. If pt needs ECF preferred providers are 1. [facility] 2. [facility]. Phone call to to [facility] and referral made. Clinicals faxed. SHASHA Rawls
--- NOTE | 2023-01-14 15:07 | CASEMGMT ---
Social Work SW received call from [facility] stating meeting has been arranged with pt and family for 5pm today. Nursing updated. SHASHA Tesfaye
[2023-01-14] MEDS: Budesonide Respules 0.5 MG/2 ML AMPUL.NEB. INHALATION (19:45)
[2023-01-15 03:34] VITALS: BP 129/51; PULSE 74; RESP 18; TEMP 36.8; O2SAT 94
[2023-01-15 05:01] VITALS: BMI 31.4
[2023-01-15] MEDS: LORazepam 1 MG Tablet PO (05:25)
[2023-01-15 06:03] LABS: Hematocrit 29.4 % (37-47); Hemoglobin 9.4 g/dL (12.0-15.0); Mean Corpuscular Hgb 32.1 pg (27.0-32.0); Mean Corpuscular Volume 100.3 fL (81-99); POSITIVE COUNT YES; POSITIVE DIFFERENTIAL YES; POSITIVE MORPHOLOGY YES; Platelet Count 24 K/mm3 (150-450); RBC Distribution Width CV 17.9 % (11.6-14.6); RBC Distribution Width SD 57.3 fl (35.1-43.9); Red Blood Count 2.93 M/mm3 (4.2-5.4); White Blood Count 118.9 K/mm3 (4.4-11.0)
[2023-01-15 06:45] LABS: Anion Gap 9 (5-15); BUN 33 mg/dL (7-18); Calcium,Total 9.2 mg/dL (8.5-10.1); Chloride 111 mmol/L (98-107); Creatinine, Serum 3.65 mg/dL (0.55-1.02); EST Glomerular Filtration Rate 13 mL/min (>60); Est Glom Filt Rate - Afr Amer 15 mL/min (>60); Estimated Creatinine Clearance 11.87 ml/min; Glucose 117 mg/dL (74-106); Potassium 3.5 mmol/L (3.5-5.1); Sodium Level 140 mmol/L (136-145)
[2023-01-15 06:55] VITALS: O2SAT 94
[2023-01-15 07:11] LABS: Differential Indicated MANUAL DIFF
[2023-01-15 07:35] VITALS: O2SAT 93
[2023-01-15 08:07] VITALS: O2SAT 91
--- NOTE | 2023-01-15 08:50 | DCINST_ITS ---
Discharge Instructions Diet Discharge Diet: No restrictions Activity Discharge Activity: Return to Normal Activity Dressing / Incision Call your doctor if you observe: Fever of 101 or Higher, Shortness of breath, Dizziness, Fainting spells, Swelling in the ankles, Chest pain and Increased palpitations (irregular heartbeat) Follow Up Care Test Results: Test results from this visit will be discussed in further detail at your follow- up appointment, if applicable. Discharge Plan Admission Admit Date/Time: 01/11/23 18:19 Attending Provider: Shiva Lorenzo Primary Care Provider: Care Physician,Saumya Primary Consulting Providers: Ely Restrepo Discharge Orders/Prescriptions Prescriptions: New amoxicillin-pot clavulanate 875-125 mg tablet 1 tab PO BID Qty: 10 0RF lorazepam 1 mg Tablet 1 mg PO BID PRN (Reason: Anxiety/Agitation) 5 Days Qty: 10 0RF Continued sertraline 25 mg tablet 25 mg PO Q24H Patient Comments: TAKE 1 TABLET BY MOUTH ONCE DAILY diphenhydramine HCl [Aler-Cap] 25 mg capsule 25 mg PO QHS allopurinol 300 mg Tablet 300 mg PO BIDCM Qty: 60 0RF Referrals / Follow Up: Care Physician,Saumya Primary [Primary Care Provider] - Disposition Disposition (needs filled in before D/C Order can be placed): Hospice in Home
[2023-01-15 08:52] VITALS: BP 135/60; PULSE 81; RESP 20; TEMP 36; O2SAT 94
[2023-01-15 09:28] LABS: Pathologist Review Reviewed
--- NOTE | 2023-01-15 09:42 | CASEMGMT ---
Social Work SW met with pt to discuss discharge plan. Pt states she and dgt did meet with hospice yesterday and pt is planning on going home with her daughter. With pt permission, phone call to pt dgt Olga. Olga confirms that pt will discharge to her home today with hospice services. Hospice is delivering the DME at 1pm today and pt can return home after that. Phone call to Linda at [facility] to confirm discharge plan. Hospice is unable to transport. SW updated Linda that transportation can arranged with [facility] for 2pm picker tender helper. Discharge orders faxed. Plan: Home with daughter Olga and hospice services today. SHASHA Rawls
--- NOTE | 2023-01-15 10:20 | CASEMGMT ---
Discharge Planning [facility] will transport patient to her daughters home by cot at 2p. Nursing, SW, and patient's daughter updated. Martha Almaguer, Discharge Planning
[2023-01-15] MEDS: 0.9% Saline Lock 10 ML Syringe IV ×2 (10:46→13:58)
[2023-01-15] MEDS: Piperacil/Tazobactam 3.375 GM in 0.9% Normal Saline (50mL MB+) 50 ML IV (10:46)
[2023-01-15 11:49] LABS: Basophil 1 % (0-1); Blast 61 % (0-0); Lymphocyte 9 % (19-41); Myelocyte 3 % (0-0); Neutrophil-Band 7 % (0-5); Neutrophil-Segmented 18 % (47-70); Platelet Estimate MKD DEC (ADEQ); Promyelocyte 1 % (0-0); Red Cell Morphology NORM C+C NORMAL (NORM C&C); Total Cells Counted 100 (MANUAL DIFF)
[2023-01-15 11:51] LABS: Absolute Neutrophil Count 29.3 X10^3/uL (2.0-7.7)
--- NOTE | 2023-01-15 13:46 | PCM.DC.SUM ---
Providers Date of Admission: 01/11/23 Primary Care Physician: Saumya Primary Care Phys Consultations 01/14/23 12:48 Consult: Hospice / Palliative Care Routine Consulting Provider: [facility] Reason for Consult: acute agressive leukemia and renal failure EMERGENT Consult: No MD Notified: No Date Notified: 01/14/23 Time Notified: 12:48 Reason For Visit: PNEUMONIA, HYPOXIA Diagnosis Discharge Diagnosis (1) Pneumonia: Status: Acute Code(s): J18.9 - Pneumonia, unspecified organism Medications at Discharge Home Medications allopurinol 300 mg tablet 300 mg PO BIDCM GOUT #60 tabs 01/05/23 diphenhydramine HCl 25 mg capsule (Aler-Cap) 25 mg PO QHS SLEEP 01/11/23 sertraline 25 mg tablet 25 mg PO Q24H DEPRESSION 01/11/23 amoxicillin 875 mg-potassium clavulanate 125 mg tablet 1 tab PO BID #10 tabs 01/15/23 lorazepam 1 mg tablet 1 mg PO BID PRN Anxiety/Agitation 5 days #10 tabs 01/15/23 Hospital Course Operations None Procedures None Summary of Care Provided Minutes Spent on Discharge: 38 Hospital Course: Per HPI: The patient is an 87 y/o F w/ PMHx: Hypertension, recent [facility] admission 01/02/2023 with leukocytosis secondary to acute leukemia, 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 on day of presentation of RUE discomfort without any swelling as well as pleuritic chest discomfort worse with any coughing or deep inspiratory effort prompting EMS call and transition to the ED at outside facility for evaluation. Outside hospital ED presentation vitals T97.6, HR 83, RR 16, 91% on RA but was noted to drop down at rest to 89% on RA, BP 163/45-->current T98.8, 94% on 2L, HR 78, RR 16-18, High-sensitivity troponin 8.8, D-dimer 812, CBC with WBC 93.7, hemoglobin 9.0, MCV 99, platelet 39, CMP with sodium 136, potassium 3.4, chloride 102, CO2 24.9, glucose 170, BUN/creatinine 17/2.01, hepatic profile with AST/ALT 17/23, alk phos 41, calcium 8.9, total bilirubin 0.5, GFR 23 otherwise not marked appearing, CXR with read per ED physician at outside facility with similar ill-defined opacities of the left lateral lung base may represent atelectasis versus infiltrate and now noted R perihilar infiltrate. In the outside hospital ED patient administered IV Zosyn x 1 3.375 mg. Discussed with outside facility ED physician and he noted that hospitalist at their facility had declined and that unfortunately I do not have access to duplex or VQ scan even potentially on Thursday. Hospital Course: 1. Community-acquired pneumonia with mild hypoxia?87-year-old female presented to the hospital with shortness of breath and was found to have pneumonia. She was started on Zosyn and vancomycin however the vancomycin was discontinued secondary to her MRSA testing negative. Legionella and strep antigens were also negative as was a respiratory panel with COVID. We will plan to discharge on 5 more days of p.o. Augmentin. I discussed the plan for discharge today with her and she expressed understanding the risk benefits of going home and would like to go home today. 2. 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 We will plan for discharge home with hospice today. She was having some significant anxiety related to her diagnosis and her hospice decision and so I will plan to discharge her with twice daily Ativan as needed which can be adjusted by hospice when she gets home. Physical Exam Narrative General: Alert, Oriented x3, Cooperative, No apparent distress HEENT: Atraumatic, PERRLA, EOMI, Normocephalic, hard of hearing Oral: Moist Mucosa Neck: Supple, No JVD Lungs: Diminished, Normal air movement, No rhonchi, No wheeze, No rales Cardiovascular: Regular rate, Regular Rhythm, Normal S1, Normal S2, No murmurs Abdomen: Soft, Non Tender, Non-Distended, No Hepato-splenomegaly Extremities: No edema, Capillary Refill Less than 3 Seconds Skin: No rashes, No breakdown Musculoskeletal: No Tenderness to Palpation of Joints or Extremities Neurological: Cranial nerves II-XII grossly intact, Motor Exam 5/5 strength throughout, Sensory exam intact to light touch and pain Psych/Mental Status: Anxious Weight / BMI Weight Weight: 155 lb 10.342 oz Body Mass Index (BMI) 31.4 ABG / Lab / Microbiology Data 01/15/23 05:35 01/15/23 05:35 Laboratory: Laboratory Results - last 24 hr 01/14/23 06:05: Diff Path Review Reviewed 01/15/23 05:35: WBC 118.9 H*, RBC 2.93 L, Hgb 9.4 L, Hct 29.4 L, MCV 100.3 H, MCH 32.1 H, MCHC 32.0, RDW Std Deviation 57.3 H, RDW Coeff of Macy 17.9 H, Plt Count 24 L*, MPV 12.0, Neut % (Auto) Not Reportable, Absolute Neuts (auto) 29.3 H, Absolute Lymphs (auto) 10.70 H, Total Counted 100, Neutrophils % (Manual) 18 L, Band Neutrophils % 7 H, Lymphocytes % (Manual) 9 L, Basophils % (Manual) 1, Myelocytes % 3 H, Promyelocytes % 1 H, Blast Cells % 61 H*, Diff Path Review May foll, Platelet Estimate MKD DEC, RBC Morphology NORM C+C, Sodium 140, Potassium 3.5, Chloride 111 H, Carbon Dioxide 20.0 L, Anion Gap 9, BUN 33 H, Creatinine 3.65 H, Estim Creat Clear Calc 11.87, Est GFR (MDRD) Af Amer 15 L, Est GFR (MDRD) Non-Af 13 L, BUN/Creatinine Ratio 9.0 L, Glucose 117 H, Calcium 9.2 Microbiology: Microbiology 01/11/23 19:45 Mucosa - Nasopharyngeal Coronavirus COVID-19 PCR - Final 01/11/23 19:45 Mucosa - Nasopharyngeal Respiratory Panel (PCR) - Final 01/12/23 00:28 Urine, Clean Catch Streptococcus pneumoniae Antigen (M - Final 01/12/23 00:28 Urine, Clean Catch Legionella Antigen - Final D/C Instructions Discharge Diet: No restrictions Call your doctor if you observe: Fever of 101 or Higher, Shortness of breath, Dizziness, Fainting spells, Swelling in the ankles, Chest pain and Increased palpitations (irregular heartbeat) Meaningful Use Info Meaningful Use Diagnoses (Choose all that apply): None applicable Discharge Plan Admission Admit Date/Time: 01/11/23 18:19 Attending Provider: Shiva Lorenzo Primary Care Provider: Care Physician,No Primary Consulting Providers: Ely Restrepo Discharge Orders/Prescriptions Prescriptions: New amoxicillin-pot clavulanate 875-125 mg tablet 1 tab PO BID Qty: 10 0RF lorazepam 1 mg Tablet 1 mg PO BID PRN (Reason: Anxiety/Agitation) 5 Days Qty: 10 0RF Continued sertraline 25 mg tablet 25 mg PO Q24H Patient Comments: TAKE 1 TABLET BY MOUTH ONCE DAILY diphenhydramine HCl [Aler-Cap] 25 mg capsule 25 mg PO QHS allopurinol 300 mg Tablet 300 mg PO BIDCM Qty: 60 0RF Referrals / Follow Up: Care Physician,No Primary [Primary Care Provider] - Disposition Disposition (needs filled in before D/C Order can be placed): Hospice in Home Charges/Coding Visit Charges Inpatient E&M: 94518 Disch Hosp >30min
--- NOTE | 2023-01-15 14:17 | CASEMGMT ---
Updated [facility] that pt will dc with hospice via [facility] at this time.
[2023-01-15 15:10] VITALS: BP 128/56; PULSE 78; RESP 20; TEMP 36.5; O2SAT 92
[2023-01-16 09:55] LABS: Pathologist Review Reviewed
== END 2023-01-15 15:20 | disposition hospice, home (50) | DRG 194 ==
PROVIDERS: Admitting Provider Family Medicine; Referring Provider Family Medicine; Visit Provider Family Medicine
DX: J18.9 Pneumonia, unspecified organism (principal); C95.00 Acute leukemia of unspecified cell type not having achieved remission; D69.6 Thrombocytopenia, unspecified; I10 Essential (primary) hypertension; F41.0 Panic disorder [episodic paroxysmal anxiety]
CPT/HCPCS: 36415; 71046; 71250; 78582; 80048; 80053; 80202; 83735; 84100; 84145; 85025; 86850; 86900; 86901; 86920; 87449; 87633; 87635; 87641; 93971; 94640; 94668; 97162; 97166; 97530; 97535; 99252; A9540; A9567; J7040; J7050; P9016; A4216; G0463